=== PATIENT | female | born 1940 | race Caucasian/White ===

== ENCOUNTER → 2016-09-14 | Outpatient (CLI) | payer OTHER, MEDICARE ==
[~2016-09-14] MED LIST: HYDR12.56 PO; LORA-741 PO; SENNTAB23 PO; ZNTT/150 PO
[2016-09-14 12:35] LABS: ALT/SGPT 21 U/L (12-78); BLOOD UREA NITROGEN 13 mg/dl (7-18); BUN/CREATININE RATIO 13.8 (10-20); CALCIUM 9.2 mg/dl (8.5-10.1); CARBON DIOXIDE 28 mmol/L (21-32); CHLORIDE 105 mmol/L (98-107); CHOLESTEROL 215 mg/dl (0-200); CREATININE 0.95 mg/dl (0.60-1.20); GLUCOSE 103 mg/dl (70-99); POTASSIUM 3.8 mmol/L (3.5-5.1); SODIUM 142 mmol/L (136-145); TRIGLYCERIDES 130 mg/dl (0-150); VERY LOW DENSITY LIPOPROT CALC 26 mg/dl
[2016-09-14 12:37] LABS: ALB/GLOB RATIO 1.1 (0.9-2); ALKALINE PHOSPHATASE 84 U/L (45-117); AST/SGOT 15 U/L (15-37); CHOLESTEROL/HDL RATIO 3.3; HDL CHOLESTEROL 65 mg/dl; LDL CHOLESTEROL CALCULATED 124 mg/dl
[2016-09-14 12:49] LABS: ESTIMATED AVERAGE GLUCOSE 114 mg/dl; HA1C FLAG Normal (Normal)
== END | disposition home or self-care (01) ==
LOC: C.LABPVFM 08:35
PROVIDERS: ATTEND Family Medicine
DX: R73.01 Impaired fasting glucose (principal); E78.5 Hyperlipidemia, unspecified; G47.00 Insomnia, unspecified; I10 Essential (primary) hypertension

== ENCOUNTER → 2017-01-18 | Outpatient (CLI) | payer OTHER, MEDICARE ==
[2017-01-18 13:26] LABS: ALB/GLOB RATIO 0.9 (0.9-2); ALT/SGPT 25 U/L (12-78); AST/SGOT 15 U/L (15-37); BLOOD UREA NITROGEN 13 mg/dl (7-18); BUN/CREATININE RATIO 14.6 (10-20); CALCIUM 9.4 mg/dl (8.5-10.1); CARBON DIOXIDE 29 mmol/L (21-32); CHLORIDE 108 mmol/L (98-107); CHOLESTEROL 215 mg/dl (0-200); GLUCOSE 102 mg/dl (70-99); POTASSIUM 4.1 mmol/L (3.5-5.1); SODIUM 141 mmol/L (136-145); TRIGLYCERIDES 147 mg/dl (0-150); VERY LOW DENSITY LIPOPROT CALC 29 mg/dl
[2017-01-18 13:28] LABS: ALKALINE PHOSPHATASE 98 U/L (45-117); CHOLESTEROL/HDL RATIO 3.5; HDL CHOLESTEROL 61 mg/dl; LDL CHOLESTEROL CALCULATED 125 mg/dl
== END | disposition home or self-care (01) ==
LOC: C.LABPVFM 07:57
PROVIDERS: ATTEND Family Medicine
DX: E78.5 Hyperlipidemia, unspecified (principal); K21.9 Gastro-esophageal reflux disease without esophagitis; G47.00 Insomnia, unspecified; I10 Essential (primary) hypertension

== ENCOUNTER → 2017-07-19 | Outpatient (CLI) | payer OTHER ==
[2017-07-19 18:04] LABS: ALBUMIN 3.8 gm/dl (3.4-5.0); ALT/SGPT 27 U/L (12-78); BLOOD UREA NITROGEN 15 mg/dl (7-18); CALCIUM 9.6 mg/dl (8.5-10.1); CARBON DIOXIDE 30 mmol/L (21-32); GLUCOSE 95 mg/dl (70-99); POTASSIUM 3.9 mmol/L (3.5-5.1); SODIUM 137 mmol/L (136-145)
[2017-07-19 18:07] LABS: ALKALINE PHOSPHATASE 99 U/L (45-117); AST/SGOT 16 U/L (15-37); TOTAL PROTEIN 7.7 gm/dl (6.4-8.2)
== END | disposition home or self-care (01) ==
LOC: C.LABPVFM 11:17
PROVIDERS: ATTEND Family Medicine
DX: R73.01 Impaired fasting glucose (principal); I35.8 Other nonrheumatic aortic valve disorders; E78.5 Hyperlipidemia, unspecified; K21.9 Gastro-esophageal reflux disease without esophagitis; G47.00 Insomnia, unspecified; I10 Essential (primary) hypertension

== ENCOUNTER → 2018-02-12 | Outpatient (CLI) | payer OTHER ==
[~2018-02-12] MED LIST changes: +RANI150T85 PO; -ZNTT/150 PO
[2018-02-12 12:57] LABS: ALBUMIN 3.7 gm/dl (3.4-5.0); ALKALINE PHOSPHATASE 93 U/L (45-117); ALT/SGPT 22 U/L (12-78); AST/SGOT 14 U/L (15-37); BLOOD UREA NITROGEN 12 mg/dl (7-18); CARBON DIOXIDE 28 mmol/L (21-32); CHOLESTEROL 203 mg/dl (0-200); CREATININE 0.97 mg/dl (0.60-1.20); GLUCOSE 104 mg/dl (70-99); LDL CHOLESTEROL CALCULATED 114 mg/dl; POTASSIUM 3.6 mmol/L (3.5-5.1); SODIUM 137 mmol/L (136-145); TOTAL PROTEIN 7.8 gm/dl (6.4-8.2)
== END | disposition home or self-care (01) ==
LOC: C.LABPVFM 08:14
PROVIDERS: ATTEND Family Medicine
DX: K21.9 Gastro-esophageal reflux disease without esophagitis (principal); E78.5 Hyperlipidemia, unspecified; L71.9 Rosacea, unspecified; G47.00 Insomnia, unspecified; I10 Essential (primary) hypertension

== ENCOUNTER 2022-05-26 20:24 | Inpatient (IN) ==
[2022-05-26] MEDS ORDERED: ACETAMINOPHEN 500 MG TAB PO STA (20:50)
--- NOTE | 2022-05-26 21:09 | XRay Report ---
SINGLE VIEW CHEST CLINICAL HISTORY: Dyspnea. FINDINGS: An AP, portable, upright chest radiograph is compared to study dated 09/03/2019. The heart is enlarged noting atherosclerotic calcification of the thoracic aorta. The pulmonary vasculature is 9 congested. Chronic interstitial thickening is similar to previous. There is left basilar consolidatio n and a small left pleural effusion. Scarring/atelectasis is seen at the right lung base. No pneumoth orax is seen. The skeletal structures are osteopenic. The bony thorax is grossly intact. IMPRESSION: 1. Left basilar consolidation and small left pleural effusion. Correlate clinically for evidence of p neumonia/aspiration pneumonitis. Radiographic follow-up to resolution is recommended. 2. Cardiomegaly without radiographic evidence of congestive failure. ACT 112: Negative or not required by law. Electronically signed by: Ludin Sanford M.D. 05/26/2022 9:07 PM
[2022-05-26 21:18] LABS: Hemoglobin 11.7 g/dl (12.0-16.0); Mean Corpuscular Hemoglobin 31.1 pg (25.0-34.0); Mean Corpuscular Hgb Conc 34.4 g/dL (32.0-36.0); Mean Corpuscular Volume 90.4 fL (80.0-100.0); Mean Platelet Volume 9.8 fL (9.4-12.3); Platelet Count 182 K/uL (130-400); RDW Coefficient of Variation 14.6 % (11.5-14.5); RDW Standard Deviation 48.3 fL (36.4-46.3); Red Blood Count 3.76 M/uL (3.93-5.22); White Blood Count 12.59 K/ul (4.8-10.8)
[2022-05-26 21:44] LABS: Troponin I High Sensitivity 8.1 pg/ml (0-14)
[2022-05-26 21:46] LABS: Appearance Urine Cloudy (Clear); Bacteria Urine Automated Negative (Negative); Bilirubin Urine Negative (Negative); Blood Urine 1+ (Negative); Color Urine Yellow; Epithelial Cell Urine Auto >30 /lpf (0-5); Glucose Urine UA Negative (Negative); Ketones Urine Trace (Negative); Leukocyte Esterase Urine Trace (Negative); Nitrite Urine Negative (Negative); Protein Urine Trace (Negative); Specific Gravity Urine 1.022 (1.000-1.030); Urobilinogen Urine Negative (Negative)
[2022-05-26 21:47] LABS: Albumin Globulin Ratio 1.2 (0.9-2); Albumin Level 3.7 gm/dl (3.4-5.0); BUN Creatinine Ratio 13.7 (10-20); Bilirubin,Total 0.6 mg/dl (0.2-1.0); Calcium 8.4 mg/dl (8.5-10.1); Creatinine Clr Calc Pharmacy 45.6 ml/min; Est GFR (African American) 64.2 ml/min; Est GFR (Non-African American) 55.4 ml/min; Globulin 3.1 gm/dl (2.5-4.0); Magnesium 2.1 mg/dl (1.7-2.4); Potassium 2.9 mmol/L (3.5-5.1); Total Protein 6.8 gm/dl (6.0-8.3)
[2022-05-26 21:49] LABS: Basophils # (auto) 0.02 K/uL (0-0.2); Basophils % (auto) 0.2 %; Immature Granulocytes # (auto) 0.06 K/uL (0.00-0.02); Immature Granulocytes % (auto) 0.5 %; Lymphocytes # (auto) 0.56 K/uL (1.2-3.4); Lymphocytes % (auto) 4.4 %; Monocytes # (auto) 0.49 K/uL (0.24-0.82); Monocytes % (auto) 3.9 %; Neutrophils # (auto) 11.46 K/uL (1.4-6.5)
--- NOTE | 2022-05-26 21:50 | CT Scan Report ---
CT SCAN OF THE BRAIN WITHOUT IV CONTRAST CLINICAL HISTORY: Change in mental status. COMPARISON STUDY: No priors. TECHNIQUE: Unenhanced axial CT scan of the brain is performed from the vertex to the skull base. A do se lowering technique was utilized adhering to the principles of ALARA. CT DOSE: 537.48 mGy.cm FINDINGS: Brain parenchyma: There is age-related involutional change noting moderate to advanced patchy subcort ical and periventricular microangiopathic disease. There is no hemorrhage, mass effect, or evidence o f acute territorial ischemia by CT criteria. Devlin-white matter differentiation is preserved. No extra -axial fluid collection is seen. Ventricles, sulci, cisterns: Prominent secondary to involutional change. Intracranial vasculature: There is atherosclerotic calcification of the cavernous carotid and vertebr al arteries. Calvarium: Unremarkable. Sinuses and mastoids: There is moderate to advanced mucosal thickening within the ethmoid sinuses. Mi ld mucosal thickening is seen within the frontal and sphenoid sinuses. The mastoid air cells are well pneumatized. Orbits: The bony orbits are grossly intact. IMPRESSION: There is no hemorrhage, mass effect, or evidence of acute territorial ischemia by CT sonia howard. ACT 112: Negative or not required by law. Electronically signed by: Ludin Sanford M.D. 05/26/2022 9:47 PM
--- NOTE | 2022-05-26 22:03 | Emergency Department Note ---
Impression & Plan Acute hypokalemia, RSV infection, Left lower lobe pneumonia, SOB (shortness of breath), Hypoxia ED Provider Note INFORMANT: Patient and family ED PROVIDER(S): Zheng Huffman MD CHIEF COMPLAINT: Shortness of breath PLAN: Disposition: Admitted Condition: Good Outpatient prescription management: none Referral: None MEDICAL DECISION MAKING: Patient presented because of shortness of breath. She was mildly hypoxic but responded well to supplemental oxygen. She had flulike symptoms. Bio fire testing ordered. Chest x-ray was performed and was concerning for left lower lobe infiltrate. Head CT was performed due to confusion and did not reveal any acute abnormalities per radiology. Patient was found to have a mild leukocytosis and mild anemia. She was also hypokalemic. She was given IV potassium. She was also treated with IV Rocephin and IV doxycycline. Consultation was made with the [facility]. Patient was evaluated in the ER and admitted for further management. Triage Nursing notes reviewed and agree them. Vital Signs: reviewed and remarkable for hypoxia Differential diagnosis: Viral syndrome, reactive airway disease, pneumonia, pneumothorax, COPD, CHF, infections, cardiac ischemia, pulmonary embolism, musculoskeletal, gastrointestinal, as well as other pathologies. Diagnostics interpreted by me: ECG: Twelve-lead ECG reveals normal sinus rhythm at 71 bpm. Left ventricular hypertrophy present. Nonspecific ST. No ST elevation or depression. Cardiac Monitoring: Cardiac monitoring ordered by me: The patient was placed on continuous cardiac monitoring and observed. It revealed a normal sinus rhythm at 74 beats per minute without ectopy or evidence of dysrhythmia. Imaging studies: Head CT: A noncontrast CT scan of the head was performed and was negative for tumor, fracture, intracranial hemorrhage, or other acute pathology. Chest x-ray concerning for left lower lobe pneumonia. HPI: The patient is a 82year old female who presents to the Emergency Room with complaints of shortness of breath. This started few days ago and is worsening. The patient also notes the following associated symptoms, some confusion, cough, congestion, weakness, runny nose. The patient has found no relieving factors. Current pain is rated as 0/10. Family noted increased respiratory symptoms and EMS was summoned. She was found to be 89% on room air. She was given a nebulizer treatment and placed on 3 L nasal cannula oxygen. The patient did i mprove. When her O2 saturations were low she was also noted to be mildly confused. That has seemed to improve since oxygen administration. Pt denies LOC, headache, fevers, chills, diaphoresis, visual changes, neck pain, chest pain, nausea, vomiting, abdominal pain, back pain, melena, hematochezia, urinary symptoms, numbness, lymphadenopathy, rash, or other complaints. ROS: See above HPI for pertinent positives & negatives. A total of 10 systems reviewed and were otherwise negative. PAST MEDICAL HISTORY:See Below , hypertension PAST SURGICAL HISTORY:See Below, FAMILY HISTORY:See Below SOCIAL HISTORY:See Below, retired HOME MEDICATIONS:See Below ALLERGIES:See Below VITALS:See Below PHYSICAL EXAMINATION: GENERAL: Awake, alert, mildly dyspneic-appearing, in no distress HENT: Normocephalic, atraumatic. Oropharynx unremarkable. Mild nasal congestion EYES: Normal conjunctiva. Sclera non-icteric. NECK: Inspection normal. Non-tender. Supple. No nuchal rigidity. FROM. No masses. RESPIRATORY: Scattered rhonchi no wheezes. No rales. Increased respiratory effort. CARDIAC: Normal rate. Normal rhythm. No murmurs. No rubs. Extremities warm and well perfused. Pulses equal. No JVD. GI: Soft, non-distended. No tenderness to palpation. No rebound or guarding. No masses. RECTAL: Deferred. MUSCULOSKELETAL: Atraumatic. Chest examination reveals no tenderness. The back is symmetrical on inspection without obvious abnormality. There is no CVA tenderness to palpation. No joint edema. LOWER EXTREMITIES: Calves are equal size bilaterally and non-tender. No edema. No discoloration. NEURO: Normal sensorium. No sensory or motor deficits noted. SKIN: No rash or jaundice noted. Zheng Huffman MD Past Med/Surg History Medical History (Updated 05/27/22 @ 00:32 by Zheng Huffman MD) Change in vision History of actinic keratosis Prolapse of vaginal vault after hysterectomy Rectocele Rhinitis Seborrheic keratosis Surgical History History of hysterectomy History of oophorectomy History of parathyroid surgery Family History Mother Breast cancer Sister Breast cancer Other Family history of breast cancer Denies family history of Ovarian cancer Prostate cancer Myocardial infarction Colorectal cancer Social History Smoking Status: Never smoker Second Hand Exposure: No; Hx Alcohol Use: No Hx Substance Use: No Preferred Language: German Visual Impairment: No Limitations Hearing Ability: Hard of Hearing marital status: Current Living Situation: Spouse current occupational status: retired Feels Safe at Home: Yes Childhood Exposure to Second-Hand Smoke: No caffeine: Yes (coffee) Dental Care, Regularly: No Physical Activity Frequency: Does not Exercise Seatbelt Use: always Sunscreen Use: Yes Allergies Allergies Allergy/AdvReac Type Severity Reaction Status Date / Time Fexofenadine HCl TABS Allergy Unknown Seizure Uncoded 12/04/21 12:58 Home Meds Home Medications Medication Instructions Recorded Confirmed hydrochlorothiazide 12.5 mg capsule 12.5 mg PO QAM 05/26/22 05/26/22 Results & Data (ED) Vital Signs Vital Signs - 24 hr 05/26/22 20:37 05/26/22 20:54 05/26/22 20:30 Temperature 37.6 C H Temperature Source Oral Pulse Rate 73 Pulse Rate [Apical] Pulse Rhythm [Apical] Respiratory Rate 18 Respiratory Effort / Characteristics Non-Labored Spontaneous Short of Breath SOB on Exertion Respiratory Depth Normal Respiratory Pattern Regular Blood Pressure 166/74 H Blood Pressure [Right Arm] Blood Pressure Mean 104 Blood Pressure Mean [Right Arm] Pulse Oximetry 93 91 Oxygen Delivery Method Nasal Cannula Nasal Cannula Room Air Oxygen Flow Rate 3 3 2 Sepsis Recent Fever Within 48 Hours Yes Sepsis New/Unexplained Change in Mental Status No Sepsis Action Taken by Nursing No Action Required 05/26/22 20:30 05/26/22 20:50 05/26/22 23:39 Temperature Temperature Source Pulse Rate 74 Pulse Rate [Apical] 74 62 Pulse Rhythm [Apical] Regular Respiratory Rate 24 24 16 Respiratory Effort / Characteristics Labored Respiratory Depth Normal Respiratory Pattern Blood Pressure Blood Pressure [Right Arm] 178/76 H 127/57 L Blood Pressure Mean Blood Pressure Mean [Right Arm] 110 80 Pulse Oximetry 95 95 97 Oxygen Delivery Method Nasal Cannula Nasal Cannula Nasal Cannula Oxygen Flow Rate 2 2 2 Sepsis Recent Fever Within 48 Hours Sepsis New/Unexplained Change in Mental Status Sepsis Action Taken by Nursing Laboratory Data Result diagrams: 05/26/22 20:50 05/26/22 20:50 Lab Results 05/26/22 05/26/22 05/26/22 Range/Units 20:50 20:50 20:50 WBC 12.59 H (4.8-10.8) K/ul RBC 3.76 L (3.93-5.22) M/uL Hgb 11.7 L (12.0-16.0) g/dl Hct 34.0 L (34.1-44.9) % MCV 90.4 (80.0-100.0) fL MCH 31.1 (25.0-34.0) pg MCHC 34.4 (32.0-36.0) g/dL RDW Std Deviation 48.3 H (36.4-46.3) fL RDW Coeff of Alva 14.6 H (11.5-14.5) % Plt Count 182 (130-400) K/uL MPV 9.8 (9.4-12.3) fL Immature Gran % (Auto) 0.5 % Neut % (Auto) 91.0 % Lymph % (Auto) 4.4 % Gentry % (Auto) 3.9 % Eos % (Auto) 0.0 % Baso % (Auto) 0.2 % Neut # (Auto) 11.46 H (1.4-6.5) K/uL Lymph # (Auto) 0.56 L (1.2-3.4) K/uL Gentry # (Auto) 0.49 (0.24-0.82) K/uL Eos # (Auto) 0.00 (0-0.50) K/uL Baso # (Auto) 0.02 (0-0.2) K/uL Immature Gran # (Auto) 0.06 H (0.00-0.02) K/uL Sodium 131 L (136-145) mmol/L Potassium 2.9 L (3.5-5.1) mmol/L Chloride 98 (98-107) mmol/L Carbon Dioxide 23 (21-32) mmol/L Anion Gap 10 (3-11) BUN 13 (6-23) mg/dl Creatinine 0.95 (0.6-1.2) mg/dl Est Cr Clr Drug Dosing 45.6 ml/min Est GFR ( Amer) 64.2 ml/min Est GFR (Non-Af Amer) 55.4 ml/min BUN/Creatinine Ratio 13.7 (10-20) Glucose 157 H (70-99(Fasting)) mg/dl Calcium 8.4 L (8.5-10.1) mg/dl Magnesium 2.1 (1.7-2.4) mg/dl Total Bilirubin 0.6 (0.2-1.0) mg/dl AST 18 (13-39) U/L ALT 18 (7-52) U/L Alkaline Phosphatase 72 (34-104) U/L Troponin I High Sens 8.1 (0-14) pg/ml B-Natriuretic Peptide 119 H (0-100) pg/ml Total Protein 6.8 (6.0-8.3) gm/dl Albumin 3.7 (3.4-5.0) gm/dl Globulin 3.1 (2.5-4.0) gm/dl Albumin/Globulin Ratio 1.2 (0.9-2) Urine Color Urine Appearance (Clear) Urine pH (4.5-7.5) Ur Specific Sargent (1.000-1.030) Urine Protein (Negative) Urine Glucose (UA) (Negative) Urine Ketones (Negative) Urine Blood (Negative) Urine Nitrite (Negative) Urine Bilirubin (Negative) Urine Urobilinogen (Negative) Ur Leukocyte Esterase (Negative) Urine WBC (Auto) (0-5) /hpf Urine RBC (Auto) (0-4) /hpf U Hyaline Cast (Auto) (0-5) /lpf U Epithel Cells (Auto) (0-5) /lpf Urine Bacteria (Auto) (Negative) Ur Renal Epithelial Cell Urine Mucus (None Prsent) Adenovirus (PCR) (NotDetected) B. pertussis DNA (PCR) (NotDetected) B.parapertussis DNA PCR (NotDetected) C. pneumoniae DNA (PCR) (NotDetected) Coronavirus OC43 (PCR) (NotDetected) Coronavirus HKU1 (PCR) (NotDetected) Coronavirus 229E (PCR) (NotDetected) SARS-CoV-2 (PCR) (NotDetected) Coronavirus NL63 (PCR) (NotDetected) Human Metapneumovir PCR (NotDetected) Influenza Type A (PCR) (NotDetected) Influenza Type B (PCR) (NotDetected) M. pneumoniae (PCR) (NotDetected) Parainfluenza 1 (PCR) (NotDetected) Parainfluenza 2 (PCR) (NotDetected) Parainfluenza 3 (PCR) (NotDetected) Parainfluenza 4 (PCR) (NotDetected) RSV (PCR) (NotDetected) Entero/Rhino (PCR) (NotDetected) 05/26/22 05/26/22 Range/Units 20:55 21:20 WBC (4.8-10.8) K/ul RBC (3.93-5.22) M/uL Hgb (12.0-16.0) g/dl Hct (34.1-44.9) % MCV (80.0-100.0) fL MCH (25.0-34.0) pg MCHC (32.0-36.0) g/dL RDW Std Deviation (36.4-46.3) fL RDW Coeff of Alva (11.5-14.5) % Plt Count (130-400) K/uL MPV (9.4-12.3) fL Immature Gran % (Auto) % Neut % (Auto) % Lymph % (Auto) % Gentry % (Auto) % Eos % (Auto) % Baso % (Auto) % Neut # (Auto) (1.4-6.5) K/uL Lymph # (Auto) (1.2-3.4) K/uL Gentry # (Auto) (0.24-0.82) K/uL Eos # (Auto) (0-0.50) K/uL Baso # (Auto) (0-0.2) K/uL Immature Gran # (Auto) (0.00-0.02) K/uL Sodium (136-145) mmol/L Potassium (3.5-5.1) mmol/L Chloride (98-107) mmol/L Carbon Dioxide (21-32) mmol/L Anion Gap (3-11) BUN (6-23) mg/dl Creatinine (0.6-1.2) mg/dl Est Cr Clr Drug Dosing ml/min Est GFR ( Amer) ml/min Est GFR (Non-Af Amer) ml/min BUN/Creatinine Ratio (10-20) Glucose (70-99(Fasting)) mg/dl Calcium (8.5-10.1) mg/dl Magnesium (1.7-2.4) mg/dl Total Bilirubin (0.2-1.0) mg/dl AST (13-39) U/L ALT (7-52) U/L Alkaline Phosphatase (34-104) U/L Troponin I High Sens (0-14) pg/ml B-Natriuretic Peptide (0-100) pg/ml Total Protein (6.0-8.3) gm/dl Albumin (3.4-5.0) gm/dl Globulin (2.5-4.0) gm/dl Albumin/Globulin Ratio (0.9-2) Urine Color Yellow Urine Appearance Cloudy A (Clear) Urine pH 6.0 (4.5-7.5) Ur Specific Sargent 1.022 (1.000-1.030) Urine Protein Trace H (Negative) Urine Glucose (UA) Negative (Negative) Urine Ketones Trace H (Negative) Urine Blood 1+ H (Negative) Urine Nitrite Negative (Negative) Urine Bilirubin Negative (Negative) Urine Urobilinogen Negative (Negative) Ur Leukocyte Esterase Trace H (Negative) Urine WBC (Auto) 5-10 H (0-5) /hpf Urine RBC (Auto) 5-10 H (0-4) /hpf U Hyaline Cast (Auto) 10-30 H (0-5) /lpf U Epithel Cells (Auto) >30 H (0-5) /lpf Urine Bacteria (Auto) Negative (Negative) Ur Renal Epithelial Cell Not Reportable Urine Mucus Present A (None Prsent) Adenovirus (PCR) Not Detected (NotDetected) B. pertussis DNA (PCR) Not Detected (NotDetected) B.parapertussis DNA PCR Not Detected (NotDetected) C. pneumoniae DNA (PCR) Not Detected (NotDetected) Coronavirus OC43 (PCR) Not Detected (NotDetected) Coronavirus HKU1 (PCR) Not Detected (NotDetected) Coronavirus 229E (PCR) Not Detected (NotDetected) SARS-CoV-2 (PCR) Not Detected (NotDetected) Coronavirus NL63 (PCR) Not Detected (NotDetected) Human Metapneumovir PCR Not Detected (NotDetected) Influenza Type A (PCR) Not Detected (NotDetected) Influenza Type B (PCR) Not Detected (NotDetected) M. pneumoniae (PCR) Not Detected (NotDetected) Parainfluenza 1 (PCR) Not Detected (NotDetected) Parainfluenza 2 (PCR) Not Detected (NotDetected) Parainfluenza 3 (PCR) Not Detected (NotDetected) Parainfluenza 4 (PCR) Not Detected (NotDetected) RSV (PCR) DETECTED A* (NotDetected) Entero/Rhino (PCR) Not Detected (NotDetected) Administered Medications Discontinued Medications Acetaminophen (Acetaminophen 500 Mg Tab) 1,000 mg PO NOW STA Stop: 05/26/22 20:51 Last Admin: 05/26/22 21:12 Dose: 1,000 mg Documented By: PHIL Ceftriaxone Sodium (Rocephin) 2,000 mg in 70 mls @ 140 mls/hr IV NOW STA Stop: 05/26/22 22:33 Last Infusion: 05/26/22 23:08 Dose: 0 mls/hr Documented By: Admin: 05/26/22 22:41 Dose: 140 mls/hr Documented By: PHIL Doxycycline Hyclate 100 mg/ (Dextrose) 110 mls @ 50 mls/hr IV NOW STA Stop: 05/27/22 00:15 Last Admin: 05/26/22 23:08 Dose: 50 mls/hr Documented By: PHIL Potassium Chloride (K [place] / Wtr) 10 meq in 100 mls @ 100 mls/hr IV Q1H KATIE; Protocol Stop: 05/27/22 00:14 Last Admin: 05/26/22 23:38 Dose: 100 mls/hr Documented By: Infusion: 05/26/22 23:38 Dose: 0 mls/hr Documented By: Admin: 05/26/22 22:42 Dose: 100 mls/hr Documented By: PHIL Imaging Data Radiologist's Impression: Chest X-Ray 05/26/22 20:50 SINGLE VIEW CHEST CLINICAL HISTORY: Dyspnea. FINDINGS: An AP, portable, upright chest radiograph is compared to study dated 09/03/2019. The heart is enlarged noting atherosclerotic calcification of the thoracic aorta. The pulmonary vasculature is 9 congested. Chronic interstitial thickening is similar to previous. There is left basilar consolidation and a small left pleural effusion. Scarring/atelectasis is seen at the right lung base. No pneumothorax is seen. The skeletal structures are osteopenic. The bony thorax is grossly intact. IMPRESSION: 1. Left basilar consolidation and small left pleural effusion. Correlate clinically for evidence of pneumonia/aspiration pneumonitis. Radiographic follow-up to resolution is recommended. 2. Cardiomegaly without radiographic evidence of congestive failure. ACT 112: Negative or not required by law. Electronically signed by: Ludin Sanford M.D. 05/26/2022 9:[address] 05/26/22 20:50 CT SCAN OF THE BRAIN WITHOUT IV CONTRAST CLINICAL HISTORY: Change in mental status. COMPARISON STUDY: No priors. TECHNIQUE: Unenhanced axial CT scan of the brain is performed from the vertex to the skull base. A dose lowering technique was utilized adhering to the principles of ALARA. CT DOSE: 537.48 mGy.cm FINDINGS: Brain parenchyma: There is age-related involutional change noting moderate to advanced patchy subcortical and periventricular microangiopathic disease. There is no hemorrhage, mass effect, or evidence of acute territorial ischemia by CT criteria. Devlin-white matter differentiation is preserved. No extra-axial fluid collection is seen. Ventricles, sulci, cisterns: Prominent secondary to involutional change. Intracranial vasculature: There is atherosclerotic calcification of the cavernous carotid and vertebral arteries. Calvarium: Unremarkable. Sinuses and mastoids: There is moderate to advanced mucosal thickening within the ethmoid sinuses. Mild mucosal thickening is seen within the frontal and sphenoid sinuses. The mastoid air cells are well pneumatized. Orbits: The bony orbits are grossly intact. IMPRESSION: There is no hemorrhage, mass effect, or evidence of acute territorial ischemia by CT criteria. ACT 112: Negative or not required by law. Electronically signed by: Ludin Sanford M.D. 05/26/2022 9:47 PM Discharge Plan Visit Data Chief Complaint: Shortness of Breath/Dyspnea Stated Complaint: ILLNESS/SHORT OF BREATH ED Provider: Zheng Huffman Discharge Problem: Acute hypokalemia, RSV infection, Left lower lobe pneumonia, SOB (shortness of breath), Hypoxia Forms Stand Alone Forms: [facility] [employer] Prescriptions Prescriptions: No Action hydrochlorothiazide 12.5 mg capsule 12.5 mg PO QAM Referrals Referrals: Mai Caceres MD [Primary Care Provider] -
[2022-05-26] MEDS ORDERED: DOXYCYCLINE HYCLATE 100 MG in DEXTROSE 5% 100 ML IV STA (22:04)
[2022-05-26] MEDS ORDERED: cefTRIAXone SODIUM 2,000 MG/70 ML BAG IV STA (22:04)
[2022-05-26 22:28] LABS: Mucus Urine Present (None Prsent)
[2022-05-26] MEDS: POTASSIUM CHLORIDE / WTR 10 MEQ/100 ML PLCT IV SCH ×2 (22:42→23:38)
[2022-05-26 22:50] LABS: Adenovirus PCR Not Detected (NotDetected); Bordetella parapertussis PCR Not Detected (NotDetected); Bordetella pertussis PCR Not Detected (NotDetected); Chlamydia pneumoniae PCR Not Detected (NotDetected); Coronavirus 229E PCR Not Detected (NotDetected); Coronavirus CoV-2 (COVID19)PCR Not Detected (NotDetected); Coronavirus HKU1 PCR Not Detected (NotDetected); Coronavirus NL63 PCR Not Detected (NotDetected); Coronavirus OC43PCR Not Detected (NotDetected); Human Metapneumovirus PCR Not Detected (NotDetected); Influenza A PCR Not Detected (NotDetected); Influenza B PCR Not Detected (NotDetected); Mycoplasma pneumoniae PCR Not Detected (NotDetected); Parainfluenza Virus 1 PCR Not Detected (NotDetected); Parainfluenza Virus 2 PCR Not Detected (NotDetected); Parainfluenza Virus 3 PCR Not Detected (NotDetected); Parainfluenza Virus 4 PCR Not Detected (NotDetected); Rhinovirus/Enterovirus PCR Not Detected (NotDetected)
[2022-05-26 22:52] LABS: Respiratory Syncytial VirusPCR DETECTED (NotDetected)
--- NOTE | 2022-05-26 23:27 | History & Physical Report ---
Date of Service May 26, 2022 Assessment & Plan (1) Acute respiratory failure with hypoxia: Plan: Acute respiratory failure with hypoxia/RSV infection/secondary bacterial left lower lobe pneumonia- Methylprednisolone 40 mg IV every 8 hours Ceftriaxone 2 g IV daily Azithromycin 5 mg IV daily Duonebs every 4 hours while awake and every 2 hours when necessary. Guaifenesin extended release 12 mg p.o. twice daily Zofran 4 mg IV every 6 hours as needed Nasal cannula oxygen, titrate to keep pulse ox 94-95% (2) Left lower lobe pneumonia: (3) RSV infection: (4) Acute hypokalemia: Plan: Potassium 2.9 upon admission Given potassium chloride 10 mEq riders IV x2 from the ED Placed on NSS + KCl 20 mEq at 80 mils per hour x1 L. Follow laboratories in a.m. (5) Hypertension: Plan: Hold HCTZ History of Present Illness Chief Complaint: The patient presents to the emergency department with shortness of breath and dyspnea on exertion over the past few days. Primary Care Provider: Mai Caceres MD The patient is an 82-year-old female with a past medical history including GERD, anxiety, midline cystocele, hyperlipidemia, hypertension, insomnia, osteoporosis, palpitations, rosacea and cerumen impaction. She presented to the emergency department with shortness of breath and generalized weakness. Work-up in the emergency department included a chest x- ray which showed a left lower lobe pneumonia and pleural effusion. Viral studies showed a RSV positive test. From the emergency department she received ceftriaxone IV, doxycycline IV and potassium chloride 10 mEq IV x2. Significant abnormal laboratories: WBC 12.59, sodium 131, potassium 2.9, glucose 157 and RSV positive. Allergies Allergy/AdvReac Type Severity Reaction Status Date / Time Fexofenadine HCl TABS Allergy Unknown Seizure Uncoded 12/04/21 12:58 Home Medications Medication Instructions Recorded Confirmed Type hydrochlorothiazide 12.5 mg capsule 12.5 mg PO QAM 05/26/22 05/26/22 History Past Med/Surg History Medical History (Updated 05/27/22 @ 02:50 by Fausto Gamble MD) Change in vision History of actinic keratosis Prolapse of vaginal vault after hysterectomy Rectocele Rhinitis Seborrheic keratosis Surgical History History of hysterectomy History of oophorectomy History of parathyroid surgery Family History Mother Breast cancer Sister Breast cancer Other Family history of breast cancer Denies family history of Ovarian cancer Prostate cancer Myocardial infarction Colorectal cancer Social History Smoking Status: Never smoker Second Hand Exposure: No; Hx Alcohol Use: No Hx Substance Use: No Preferred Language: Palauan Visual Impairment: No Limitations Hearing Ability: Hard of Hearing marital status: Current Living Situation: Spouse current occupational status: retired Feels Safe at Home: Yes Childhood Exposure to Second-Hand Smoke: No caffeine: Yes (coffee) Dental Care, Regularly: No Physical Activity Frequency: Does not Exercise Seatbelt Use: always Sunscreen Use: Yes Review of Systems Review of Systems: The patient is very fatigued, but denies chest pain, palpitations, lower extremity swelling, sore throat, fevers, chills, sweats, nausea, vomiting, diarrhea , constipation, abdominal pain, pelvic pain, blood in urine or stool, dysuria, urinary frequency or urgency, loss of consciousness, rash, abnormal bruising or bleeding, focal weakness, numbness or tingling in arms or legs, generalized arthralgias or myalgias, back or neck pain, or night sweats. The review of systems is otherwise negative other than for that already noted above, and at least 10 systems have been reviewed. Physical Exam Physical Exam: The patient is awake, mildly lethargic, well developed and well nourished, normocephalic and atraumatic, lying in bed and in no acute distress. HEENT--PERRL, EOMI, mucous membranes and oropharynx dry. Neck--supple. No JVD. No bruits. Thyroid normal, trachea midline, no adenopathy. Heart--normal S1 and S2. No murmurs, rubs or gallops. Lungs--coarse breath sounds on left base. No respiratory distress, no accessory muscle use. Abdomen--normal bowel sounds and soft. Nontender. Nondistended, no hernias or masses, no organomegaly. Extremities--no cyanosis or clubbing. No edema. Dermatologic--normal skin turgor, normal color, no abnormal lymph nodes, no rash. Neurologic--cranial nerves II through XII grossly intact. Rheumatologic--normal range of motion. Psychiatric--lethargic Results & Data Results & Data ([facility]) Vital Signs (Past 12 Hours) Vital Signs Temp Pulse Pulse Resp BP BP Pulse Ox 05/26/22 20:50 74 24 95 05/26/22 20:30 74 24 178/76 H 95 05/26/22 20:30 91 05/26/22 20:54 05/26/22 20:37 37.6 C H 73 18 166/74 H 93 O2 Del Method O2 Flow Rate 05/26/22 20:50 Nasal Cannula 2 05/26/22 20:30 Nasal Cannula 2 05/26/22 20:30 Room Air 2 05/26/22 20:54 Nasal Cannula 3 05/26/22 20:37 Nasal Cannula 3 Laboratory Results Laboratory Results WBC 12.59 K/ul (4.8-10.8) H 05/26/22 20:50 RBC 3.76 M/uL (3.93-5.22) L 05/26/22 20:50 Hgb 11.7 g/dl (12.0-16.0) L 05/26/22 20:50 Hct 34.0 % (34.1-44.9) L 05/26/22 20:50 MCV 90.4 fL (80.0-100.0) 05/26/22 20:50 MCH 31.1 pg (25.0-34.0) 05/26/22 20:50 MCHC 34.4 g/dL (32.0-36.0) 05/26/22 20:50 RDW Std Deviation 48.3 fL (36.4-46.3) H 05/26/22 20:50 RDW Coeff of Alva 14.6 % (11.5-14.5) H 05/26/22 20:50 Plt Count 182 K/uL (130-400) 05/26/22 20:50 MPV 9.8 fL (9.4-12.3) 05/26/22 20:50 Immature Gran % (Auto) 0.5 % 05/26/22 20:50 Neut % (Auto) 91.0 % 05/26/22 20:50 Lymph % (Auto) 4.4 % 05/26/22 20:50 Polk % (Auto) 3.9 % 05/26/22 20:50 Eos % (Auto) 0.0 % 05/26/22 20:50 Baso % (Auto) 0.2 % 05/26/22 20:50 Neut # (Auto) 11.46 K/uL (1.4-6.5) H 05/26/22 20:50 Lymph # (Auto) 0.56 K/uL (1.2-3.4) L 05/26/22 20:50 Polk # (Auto) 0.49 K/uL (0.24-0.82) 05/26/22 20:50 Eos # (Auto) 0.00 K/uL (0-0.50) 05/26/22 20:50 Baso # (Auto) 0.02 K/uL (0-0.2) 05/26/22 20:50 Immature Gran # (Auto) 0.06 K/uL (0.00-0.02) H 05/26/22 20:50 Sodium 131 mmol/L (136-145) L 05/26/22 20:50 Potassium 2.9 mmol/L (3.5-5.1) L 05/26/22 20:50 Chloride 98 mmol/L (98-107) 05/26/22 20:50 Carbon Dioxide 23 mmol/L (21-32) 05/26/22 20:50 Anion Gap 10 (3-11) 05/26/22 20:50 BUN 13 mg/dl (6-23) 05/26/22 20:50 Creatinine 0.95 mg/dl (0.6-1.2) 05/26/22 20:50 Est Cr Clr Drug Dosing 45.6 ml/min 05/26/22 20:50 Est GFR ( Amer) 64.2 ml/min 05/26/22 20:50 Est GFR (Non-Af Amer) 55.4 ml/min 05/26/22 20:50 BUN/Creatinine Ratio 13.7 (10-20) 05/26/22 20:50 Glucose 157 mg/dl (70-99(Fasting)) H 05/26/22 20:50 Calcium 8.4 mg/dl (8.5-10.1) L 05/26/22 20:50 Magnesium 2.1 mg/dl (1.7-2.4) 05/26/22 20:50 Total Bilirubin 0.6 mg/dl (0.2-1.0) 05/26/22 20:50 AST 18 U/L (13-39) 05/26/22 20:50 ALT 18 U/L (7-52) 05/26/22 20:50 Alkaline Phosphatase 72 U/L (34-104) 05/26/22 20:50 Troponin I High Sens 8.1 pg/ml (0-14) 05/26/22 20:50 B-Natriuretic Peptide 119 pg/ml (0-100) H 05/26/22 20:50 Total Protein 6.8 gm/dl (6.0-8.3) 05/26/22 20:50 Albumin 3.7 gm/dl (3.4-5.0) 05/26/22 20:50 Globulin 3.1 gm/dl (2.5-4.0) 05/26/22 20:50 Albumin/Globulin Ratio 1.2 (0.9-2) 05/26/22 20:50 Urine Color Yellow 05/26/22 21:20 Urine Appearance Cloudy (Clear) A 05/26/22 21:20 Urine pH 6.0 (4.5-7.5) 05/26/22 21:20 Ur Specific Sadler 1.022 (1.000-1.030) 05/26/22 21:20 Urine Protein Trace (Negative) H 05/26/22 21:20 Urine Glucose (UA) Negative (Negative) 05/26/22 21:20 Urine Ketones Trace (Negative) H 05/26/22 21:20 Urine Blood 1+ (Negative) H 05/26/22 21:20 Urine Nitrite Negative (Negative) 05/26/22 21:20 Urine Bilirubin Negative (Negative) 05/26/22 21:20 Urine Urobilinogen Negative (Negative) 05/26/22 21:20 Ur Leukocyte Esterase Trace (Negative) H 05/26/22 21:20 Urine WBC (Auto) 5-10 /hpf (0-5) H 05/26/22 21:20 Urine RBC (Auto) 5-10 /hpf (0-4) H 05/26/22 21:20 U Hyaline Cast (Auto) 10-30 /lpf (0-5) H 05/26/22 21:20 U Epithel Cells (Auto) >30 /lpf (0-5) H 05/26/22 21:20 Urine Bacteria (Auto) Negative (Negative) 05/26/22 21:20 Ur Renal Epithelial Cell Not Reportable 05/26/22 21:20 Urine Mucus Present (None Prsent) A 05/26/22 21:20 Adenovirus (PCR) Not Detected (NotDetected) 05/26/22 20:55 B. pertussis DNA (PCR) Not Detected (NotDetected) 05/26/22 20:55 B.parapertussis DNA PCR Not Detected (NotDetected) 05/26/22 20:55 C. pneumoniae DNA (PCR) Not Detected (NotDetected) 05/26/22 20:55 Coronavirus OC43 (PCR) Not Detected (NotDetected) 05/26/22 20:55 Coronavirus HKU1 (PCR) Not Detected (NotDetected) 05/26/22 20:55 Coronavirus 229E (PCR) Not Detected (NotDetected) 05/26/22 20:55 SARS-CoV-2 (PCR) Not Detected (NotDetected) 05/26/22 20:55 Coronavirus NL63 (PCR) Not Detected (NotDetected) 05/26/22 20:55 Human Metapneumovir PCR Not Detected (NotDetected) 05/26/22 20:55 Influenza Type A (PCR) Not Detected (NotDetected) 05/26/22 20:55 Influenza Type B (PCR) Not Detected (NotDetected) 05/26/22 20:55 M. pneumoniae (PCR) Not Detected (NotDetected) 05/26/22 20:55 Parainfluenza 1 (PCR) Not Detected (NotDetected) 05/26/22 20:55 Parainfluenza 2 (PCR) Not Detected (NotDetected) 05/26/22 20:55 Parainfluenza 3 (PCR) Not Detected (NotDetected) 05/26/22 20:55 Parainfluenza 4 (PCR) Not Detected (NotDetected) 05/26/22 20:55 RSV (PCR) DETECTED (NotDetected) A* 05/26/22 20:55 Entero/Rhino (PCR) Not Detected (NotDetected) 05/26/22 20:55 Impressions Chest X-Ray 05/26/22 20:50 SINGLE VIEW CHEST CLINICAL HISTORY: Dyspnea. FINDINGS: An AP, portable, upright chest radiograph is compared to study dated 09/03/2019. The heart is enlarged noting atherosclerotic calcification of the thoracic aorta. The pulmonary vasculature is 9 congested. Chronic interstitial thickening is similar to previous. There is left basilar consolidation and a small left pleural effusion. Scarring/atelectasis is seen at the right lung base. No pneumothorax is seen. The skeletal structures are osteopenic. The bony thorax is grossly intact. IMPRESSION: 1. Left basilar consolidation and small left pleural effusion. Correlate clinically for evidence of pneumonia/aspiration pneumonitis. Radiographic follow-up to resolution is recommended. 2. Cardiomegaly without radiographic evidence of congestive failure. ACT 112: Negative or not required by law. Electronically signed by: Ludin Sanford M.D. 05/26/2022 9:[address] 05/26/22 20:50 CT SCAN OF THE BRAIN WITHOUT IV CONTRAST CLINICAL HISTORY: Change in mental status. COMPARISON STUDY: No priors. TECHNIQUE: Unenhanced axial CT scan of the brain is performed from the vertex to the skull base. A dose lowering technique was utilized adhering to the principles of ALARA. CT DOSE: 537.48 mGy.cm FINDINGS: Brain parenchyma: There is age-related involutional change noting moderate to advanced patchy subcortical and periventricular microangiopathic disease. There is no hemorrhage, mass effect, or evidence of acute territorial ischemia by CT criteria. Devlin-white matter differentiation is preserved. No extra-axial fluid collection is seen. Ventricles, sulci, cisterns: Prominent secondary to involutional change. Intracranial vasculature: There is atherosclerotic calcification of the cavernous carotid and vertebral arteries. Calvarium: Unremarkable. Sinuses and mastoids: There is moderate to advanced mucosal thickening within the ethmoid sinuses. Mild mucosal thickening is seen within the frontal and sphenoid sinuses. The mastoid air cells are well pneumatized. Orbits: The bony orbits are grossly intact. IMPRESSION: There is no hemorrhage, mass effect, or evidence of acute territorial ischemia by CT criteria. ACT 112: Negative or not required by law. Electronically signed by: Ludin Sanford M.D. 05/26/2022 9:47 PM Code Status & VTE Plan Code Status Full code VTE Prophylaxis Plan VTE Prophylaxis will be ordered: Yes
[2022-05-27] MEDS ORDERED: ONDANSETRON INJ 2 MG/ML 2 ML VIAL IV PRN (01:45)
[2022-05-27] MEDS ORDERED: ACETAMINOPHEN 325 MG TAB PO PRN (01:45)
--- NOTE | 2022-05-27 02:53 | Billing Data ---
Date of Service May 27, 2022 Coding Level of Care Code 25497 Initial Inpt Care Lvl 3
[2022-05-27] MEDS ORDERED: methylPREDNISolone 40 MG in SYRINGE 0 ML IV SCH (03:00)
[2022-05-27] MEDS ORDERED: INFLUENZA VACCINE HIGH DOSE PF 65+ 0.7 ML SYR IM ONE (05:21)
[2022-05-27 05:49] LABS: Basophils # (auto) 0.01 K/uL (0-0.2); Basophils % (auto) 0.1 %; Eosinophils # (auto) 0.11 K/uL (0-0.50); Eosinophils % (auto) 1.2 %; Hematocrit (blood only) 33.4 % (34.1-44.9); Hemoglobin 11.5 g/dl (12.0-16.0); Immature Granulocytes # (auto) 0.06 K/uL (0.00-0.02); Immature Granulocytes % (auto) 0.6 %; Lymphocytes # (auto) 0.79 K/uL (1.2-3.4); Lymphocytes % (auto) 8.3 %; Mean Corpuscular Hemoglobin 30.8 pg (25.0-34.0); Mean Corpuscular Hgb Conc 34.4 g/dL (32.0-36.0); Mean Corpuscular Volume 89.5 fL (80.0-100.0); Monocytes # (auto) 0.43 K/uL (0.24-0.82); Monocytes % (auto) 4.5 %; Neutrophils # (auto) 8.07 K/uL (1.4-6.5); Neutrophils % (auto) 85.3 %; Platelet Count 171 K/uL (130-400); RDW Coefficient of Variation 14.7 % (11.5-14.5); Red Blood Count 3.73 M/uL (3.93-5.22); White Blood Count 9.47 K/ul (4.8-10.8)
[2022-05-27 06:07] LABS: Albumin Globulin Ratio 1.1 (0.9-2); Albumin Level 3.4 gm/dl (3.4-5.0); BUN Creatinine Ratio 13.3 (10-20); Bilirubin,Total 0.5 mg/dl (0.2-1.0); Calcium 8.2 mg/dl (8.5-10.1); Creatinine Clr Calc Pharmacy 52.2 ml/min; Est GFR (African American) 75.6 ml/min; Est GFR (Non-African American) 65.2 ml/min; Magnesium 2.1 mg/dl (1.7-2.4); Potassium 3.1 mmol/L (3.5-5.1); Total Protein 6.4 gm/dl (6.0-8.3)
--- NOTE | 2022-05-27 07:08 | Electrocardiogram Report ---
Test Reason : Blood Pressure : / mmHG Vent. Rate : 074 BPM Atrial Rate : 074 BPM P-R Int : 164 ms QRS Dur : 090 ms QT Int : 418 ms P-R-T Axes : 061 -21 049 degrees QTc Int : 463 ms Normal sinus rhythm Moderate voltage criteria for LVH, may be normal variant Nonspecific ST abnormality Abnormal ECG When compared with ECG of 03-SEP-2019 06:15, Vent. rate has increased BY 24 BPM Confirmed by Lj Avalos ([id number]) on 05/27/2022 7:08:16 AM Referred By: REFERRED SELF Confirmed By:Kye Avalos
[2022-05-27] MEDS: ALBUT/IPRATROP 3MG/0.5MG NEB 3 ML VIAL NEB SCH ×4 (07:14→18:08)
[2022-05-27] MEDS ORDERED: POTASSIUM CHLORIDE CRTAB 20 MEQ TABCR PO STA (08:42)
[2022-05-27] MEDS: cefTRIAXone SODIUM 2,000 MG in DEXTROSE 5% 50 ML IV SCH (08:52)
[2022-05-27] MEDS: AZITHROMYCIN 500 MG in DEXTROSE 5% 250 ML IV SCH (08:52)
[2022-05-27] MEDS: ENOXAPARIN INJ 40 MG/0.4 ML SYR SQ SCH (08:53)
[2022-05-27] MEDS: guaiFENesin 600 MG TABCR PO SCH ×2 (08:53→21:17)
--- NOTE | 2022-05-27 11:53 | Hospitalist Progress Note ---
Date of Service May 27, 2022 Assessment & Plan (1) Acute respiratory failure with hypoxia: Plan: Acute respiratory failure with hypoxia/RSV infection/secondary bacterial left lower lobe pneumonia- Guaifenesin extended release 12 mg p.o. twice daily Zofran 4 mg IV every 6 hours as needed Nasal cannula oxygen, titrate to keep pulse ox 94-95% (2) RSV infection: Plan: RSV pneumonia No history of reactive airway disease / COPD / asthma Solu-medrol 40mg IV given earlier, will switch to prednisone 40mg PO daily for another 2 days Continue duonebs QID (3) Left lower lobe pneumonia: Plan: Ceftriaxone 2 g IV daily for 7 days Azithromycin 500 mg IV daily for 3 days (4) Acute hypokalemia: Plan: Suspect secondary to HCTZ Potassium 2.9 upon admission Given potassium chloride 10 mEq riders IV x2 from the ED Additional 40 meq KCl PO (5) Hypertension: Plan: Hold HCTZ Plan VTE Prophylaxis - Lovenox 40mg SQ daily Diet - heart health Disposition - continued admission on med/surg pending improvement in oxygenation. PT/OT Admission and Anticipated Discharge Date Admission Date: May 26, 2022 Subjective No significant difference with duonebs. Reports improvement since admission. Still feels very fatigued. Wet cough. No nasal congestion or sinus pain. No fever or chills. Review of Systems Review of Systems: All systems reviewed & are unremarkable except as noted in Subjective Physical Exam Constitutional: WD/WN, vitals as above Respiratory: + labored breathing, + uses accessory muscles, able to speak in complete sentences, + prolonged expiratory phase and + pursed lip breathing Auscultation: + diminished lung sounds (left base), + crackles (left base) and + wheezes (expiratory) Cardiovascular: RRR, no murmur, no edema Gastrointestinal (Abdomen): normal bowel sounds, soft, nontender, no hepatosplenomegaly Psychiatric: A+Ox3, euthymic affect Results & Data Results & Data ([facility]) Vital Signs (Past 12 Hours) Vital Signs Temp Pulse Resp BP Pulse Ox O2 Del Method O2 Flow Rate 05/27/22 07:45 Nasal Cannula 2 05/27/22 11:05 67 20 97 Nasal Cannula 2 05/27/22 08:26 37 C 78 19 175/81 H 94 Nasal Cannula 2 05/27/22 07:14 76 18 95 Nasal Cannula 2 05/27/22 01:00 Nasal Cannula 2 05/27/22 01:00 37.0 C 72 18 151/84 H 97 Nasal Cannula 2 05/27/22 02:39 36.8 C 64 20 144/83 H 98 Nasal Cannula 2 PG Care Time/CCT Total # of Minutes Spent Total Time Spent with Patient: Total time spent is greater than 50% in coordination of care (as documented) at patient's floor/unit and/or counseling patient: Coding Level of Care Code 93514 Subseq Hosp Care Lvl 2 Diagnoses Acute respiratory failure with hypoxia J96.01 RSV infection B33.8 Left lower lobe pneumonia J18.9 Acute hypokalemia E87.6 Hypertension I10
[2022-05-27] MEDS: POTASSIUM CHLORIDE / WTR 10 MEQ/100 ML PLCT IV SCH (23:31)
[2022-05-28] MEDS: POTASSIUM CHLORIDE / WTR 10 MEQ/100 ML PLCT IV SCH (00:29)
[2022-05-28 06:40] LABS: Basophils # (auto) 0.02 K/uL (0-0.2); Basophils % (auto) 0.2 %; Eosinophils # (auto) 0.04 K/uL (0-0.50); Eosinophils % (auto) 0.4 %; Hematocrit (blood only) 32.5 % (34.1-44.9); Hemoglobin 11.3 g/dl (12.0-16.0); Immature Granulocytes # (auto) 0.06 K/uL (0.00-0.02); Immature Granulocytes % (auto) 0.6 %; Lymphocytes # (auto) 1.62 K/uL (1.2-3.4); Lymphocytes % (auto) 15.1 %; Mean Corpuscular Hemoglobin 31.1 pg (25.0-34.0); Mean Corpuscular Hgb Conc 34.8 g/dL (32.0-36.0); Mean Corpuscular Volume 89.5 fL (80.0-100.0); Mean Platelet Volume 9.8 fL (9.4-12.3); Monocytes # (auto) 0.53 K/uL (0.24-0.82); Monocytes % (auto) 4.9 %; Neutrophils # (auto) 8.47 K/uL (1.4-6.5); Neutrophils % (auto) 78.8 %; Platelet Count 186 K/uL (130-400); RDW Coefficient of Variation 14.5 % (11.5-14.5); RDW Standard Deviation 47.4 fL (36.4-46.3); Red Blood Count 3.63 M/uL (3.93-5.22); White Blood Count 10.74 K/ul (4.8-10.8)
[2022-05-28 07:08] LABS: Albumin Globulin Ratio 1.2 (0.9-2); Albumin Level 3.5 gm/dl (3.4-5.0); BUN Creatinine Ratio 18.9 (10-20); Bilirubin,Total 0.3 mg/dl (0.2-1.0); Calcium 8.5 mg/dl (8.5-10.1); Creatinine Clr Calc Pharmacy 49.2 ml/min; Est GFR (African American) 68.5 ml/min; Est GFR (Non-African American) 59.1 ml/min; Magnesium 2.3 mg/dl (1.7-2.4); Potassium 3.7 mmol/L (3.5-5.1); Total Protein 6.5 gm/dl (6.0-8.3)
[2022-05-28] MEDS: ALBUT/IPRATROP 3MG/0.5MG NEB 3 ML VIAL NEB SCH ×4 (07:23→19:49)
[2022-05-28] MEDS: guaiFENesin 600 MG TABCR PO SCH ×2 (08:03→21:27)
[2022-05-28] MEDS: ENOXAPARIN INJ 40 MG/0.4 ML SYR SQ SCH (08:03)
[2022-05-28] MEDS: predniSONE 20 MG TAB PO SCH (08:03)
[2022-05-28] MEDS: cefTRIAXone SODIUM 2,000 MG in DEXTROSE 5% 50 ML IV SCH (08:09)
[2022-05-28] MEDS: AZITHROMYCIN 500 MG in DEXTROSE 5% 250 ML IV SCH (08:45)
--- NOTE | 2022-05-28 18:45 | Hospitalist Progress Note ---
Date of Service May 28, 2022 Assessment & Plan (1) Acute respiratory failure with hypoxia: Plan: Acute respiratory failure with hypoxia/RSV infection/secondary bacterial left lower lobe pneumonia- Guaifenesin extended release 12 mg p.o. twice daily Zofran 4 mg IV every 6 hours as needed Nasal cannula oxygen, titrate to keep pulse ox > 90% (2) RSV infection: Plan: RSV pneumonia -symptomatic management (3) Reactive airway disease: Plan: No history of reactive airway disease / COPD / asthma however she remains significantly wheezing on exam although with questionable improvement to duo nebs Solu-medrol 40mg IV given on admission, will switch to prednisone 40mg PO daily for another 2 days Continue duonebs QID (4) Left lower lobe pneumonia: Plan: Ceftriaxone 2 g IV daily for 7 days -plan to switch to Augmentin on discharge. Azithromycin 500 mg IV/PO daily for 3 days (5) Acute hypokalemia: Plan: Suspect secondary to hydrochlorothiazide. We will continue to monitor and replace daily. (6) Hypertension: Plan: Hold HCTZ Plan VTE Prophylaxis - Lovenox 40mg SQ daily Diet - heart health Disposition -continued admission on [facility] due to possible need for placement Admission and Anticipated Discharge Date Admission Date: May 26, 2022 Subjective Patient reports her is currently in the emergency room with similar symptoms. She remains significantly short of breath. Concerned about returning home at this time especially with her sick as well. Continues to cough of yellow sputum. Review of Systems Review of Systems: All systems reviewed & are unremarkable except as noted in Subjective Physical Exam Constitutional: WD/WN, vitals as above Respiratory: normal respiratory effort and able to speak in complete sentences; expiratory phase not prolonged and no pursed lip breathing Auscultation: + diminished lung sounds (left base), + crackles (left base) and + wheezes (expiratory) Cardiovascular: RRR, no murmur, no edema Gastrointestinal (Abdomen): normal bowel sounds, soft, nontender, no hepatosplenomegaly Psychiatric: A+Ox3, euthymic affect Results & Data Results & Data ([facility]) Vital Signs (Past 12 Hours) Vital Signs Temp Pulse Pulse Resp BP BP Pulse Ox 05/28/22 15:34 74 18 96 05/28/22 15:23 36.9 C 68 18 145/78 H 93 05/28/22 14:50 96 05/28/22 13:00 05/28/22 11:52 36.8 C 66 18 148/82 H 93 05/28/22 11:39 80 20 95 05/28/22 10:25 05/28/22 10:07 05/28/22 07:45 36.4 C L 64 18 162/79 H 96 05/28/22 07:24 64 18 95 05/28/22 07:18 70 Pulse Ox Pulse Ox Pulse Ox O2 Del Method O2 Del Method O2 Flow Rate O2 Flow Rate 05/28/22 15:34 Nasal Cannula 2 05/28/22 15:23 Nasal Cannula 2 05/28/22 14:50 05/28/22 13:00 94 Nasal Cannula 05/28/22 11:52 Nasal Cannula 2 05/28/22 11:39 Nasal Cannula 2 05/28/22 10:25 94 92 2 05/28/22 10:07 Room Air 2 05/28/22 07:45 Nasal Cannula 2 05/28/22 07:24 Nasal Cannula 2 05/28/22 07:18 O2 Flow Rate O2 Flow Rate 05/28/22 15:34 05/28/22 15:23 05/28/22 14:50 05/28/22 13:00 2 05/28/22 11:52 05/28/22 11:39 05/28/22 10:25 2 05/28/22 10:07 05/28/22 07:45 05/28/22 07:24 05/28/22 07:18 PG Care Time/CCT Total # of Minutes Spent Total Time Spent with Patient: Total time spent is greater than 50% in coordination of care (as documented) at patient's floor/unit and/or counseling patient: Coding Level of Care Code 78652 Subseq Hosp Care Lvl 2 Diagnoses Acute respiratory failure with hypoxia J96.01 RSV infection B33.8 Reactive airway disease J45.909 Left lower lobe pneumonia J18.9 Acute hypokalemia E87.6 Hypertension I10
[2022-05-29] MEDS: ALBUT/IPRATROP 3MG/0.5MG NEB 3 ML VIAL NEB SCH ×4 (05:27→19:25)
[2022-05-29] MEDS: cefTRIAXone SODIUM 2,000 MG in DEXTROSE 5% 50 ML IV SCH (07:42)
[2022-05-29] MEDS: predniSONE 20 MG TAB PO SCH (07:43)
[2022-05-29] MEDS: guaiFENesin 600 MG TABCR PO SCH ×2 (07:43→21:26)
[2022-05-29] MEDS: ENOXAPARIN INJ 40 MG/0.4 ML SYR SQ SCH (07:44)
[2022-05-29] MEDS ORDERED: AZITHROMYCIN 250 MG TAB PO ONE (09:00)
[2022-05-29 09:20] LABS: Basophils # (auto) 0.02 K/uL (0-0.2); Basophils % (auto) 0.2 %; Eosinophils # (auto) 0.04 K/uL (0-0.50); Eosinophils % (auto) 0.5 %; Hematocrit (blood only) 34.9 % (34.1-44.9); Hemoglobin 11.9 g/dl (12.0-16.0); Immature Granulocytes # (auto) 0.19 K/uL (0.00-0.02); Immature Granulocytes % (auto) 2.3 %; Lymphocytes # (auto) 2.24 K/uL (1.2-3.4); Lymphocytes % (auto) 26.8 %; Mean Corpuscular Hemoglobin 31.1 pg (25.0-34.0); Mean Corpuscular Hgb Conc 34.1 g/dL (32.0-36.0); Mean Corpuscular Volume 91.1 fL (80.0-100.0); Mean Platelet Volume 9.8 fL (9.4-12.3); Monocytes # (auto) 0.46 K/uL (0.24-0.82); Monocytes % (auto) 5.5 %; Neutrophils # (auto) 5.42 K/uL (1.4-6.5); Neutrophils % (auto) 64.7 %; Platelet Count 218 K/uL (130-400); RDW Coefficient of Variation 14.6 % (11.5-14.5); RDW Standard Deviation 49.1 fL (36.4-46.3); Red Blood Count 3.83 M/uL (3.93-5.22); White Blood Count 8.37 K/ul (4.8-10.8)
[2022-05-29 09:45] LABS: Albumin Globulin Ratio 1.1 (0.9-2); Albumin Level 3.6 gm/dl (3.4-5.0); BUN Creatinine Ratio 19.3 (10-20); Bilirubin,Total 0.3 mg/dl (0.2-1.0); Calcium 8.6 mg/dl (8.5-10.1); Creatinine Clr Calc Pharmacy 50.4 ml/min; Est GFR (African American) 70.4 ml/min; Est GFR (Non-African American) 60.8 ml/min; Globulin 3.2 gm/dl (2.5-4.0); Magnesium 2.2 mg/dl (1.7-2.4); Potassium 3.6 mmol/L (3.5-5.1); Total Protein 6.8 gm/dl (6.0-8.3)
--- NOTE | 2022-05-29 18:35 | Hospitalist Progress Note ---
Date of Service May 29, 2022 Assessment & Plan (1) Acute respiratory failure with hypoxia: Plan: Acute respiratory failure with hypoxia/RSV infection/secondary bacterial left lower lobe pneumonia- Guaifenesin extended release 12 mg p.o. twice daily Zofran 4 mg IV every 6 hours as needed Nasal cannula oxygen, titrate to keep pulse ox > 90% (2) RSV infection: Plan: RSV pneumonia -symptomatic management (3) Reactive airway disease: Plan: No history of reactive airway disease / COPD / asthma however she remains significantly wheezing on exam although with questionable improvement to duo nebs Still not having significant improvement with DuoNeb's therefore suspect that this is more bronchiolitis causing her wheezing rather than reactive airway disease. We will continue prednisone for 1 more day and DuoNebs as needed but can stop after that despite ongoing wheezing. (4) Left lower lobe pneumonia: Plan: Ceftriaxone 2 g IV daily for 7 days -plan to switch to Augmentin on discharge. Azithromycin 500 mg IV/PO daily for 3 days (5) Acute hypokalemia: Plan: Suspect secondary to hydrochlorothiazide. Now resolved. (6) Hypertension: Plan: Hold HCTZ Plan VTE Prophylaxis - Lovenox 40mg SQ daily Diet - heart health Disposition -continued admission on [facility] due to possible need for placement Admission and Anticipated Discharge Date Admission Date: May 26, 2022 Subjective Remains very wheezy. Physical therapy recommending rehab although this appears to been news to her. Currently in her 's room since he is also in hospi melva with RSV. Review of Systems Review of Systems: All systems reviewed & are unremarkable except as noted in Subjective Physical Exam Constitutional: WD/WN, vitals as above Respiratory: normal respiratory effort and able to speak in complete sentences; no labored breathing, does not use accessory muscles, expiratory phase not prolonged and no pursed lip breathing Auscultation: + diminished lung sounds (left base), + crackles (left base) and + wheezes (expiratory) Cardiovascular: RRR, no murmur, no edema Gastrointestinal (Abdomen): normal bowel sounds, soft, nontender, no hepatosplenomegaly Psychiatric: A+Ox3, euthymic affect Results & Data Results & Data ([facility]) Vital Signs (Past 12 Hours) Vital Signs Temp Pulse Resp BP Pulse Ox O2 Del Method O2 Flow Rate 05/29/22 15:35 37.0 C 70 18 137/82 94 Nasal Cannula 2 05/29/22 15:31 70 20 95 Nasal Cannula 2 05/29/22 11:45 65 18 93 Nasal Cannula 2 05/29/22 08:00 Nasal Cannula 2 05/29/22 07:39 36.7 C 63 18 146/83 H 93 Nasal Cannula 2 PG Care Time/CCT Total # of Minutes Spent Total Time Spent with Patient: Total time spent is greater than 50% in coordination of care (as documented) at patient's floor/unit and/or counseling patient: Coding Level of Care Code 77244 Subseq Hosp Care Lvl 2 Diagnoses Acute respiratory failure with hypoxia J96.01 RSV infection B33.8 Reactive airway disease J45.909 Left lower lobe pneumonia J18.9 Acute hypokalemia E87.6 Hypertension I10
[2022-05-30] MEDS: ALBUT/IPRATROP 3MG/0.5MG NEB 3 ML VIAL NEB SCH (07:06)
--- NOTE | 2022-05-30 07:37 | XRay Report ---
SINGLE VIEW CHEST CLINICAL HISTORY: Hypoxia FINDINGS: An AP, portable, upright chest radiograph is compared to study dated 05/26/2022. The heart is enlarged noting atherosclerotic calcification of the thoracic aorta. The pulmonary vasculature is noncongested. Chronic interstitial thickening is somewhat a previous. There is left basilar consolida tion and a small left pleural effusion. Atelectasis is noted at the right lung base. No pneumothorax is seen. The skeletal structures are osteopenic. The bony thorax is grossly intact. IMPRESSION: 1. Left basilar consolidation and small left pleural effusion. This is similar to 05/26/2022. 2. Cardiomegaly without radiographic evidence of congestive failure. ACT 112: Negative or not required by law. Electronically signed by: Ludin Sanford M.D. 05/30/2022 7:36 AM
[2022-05-30] MEDS ORDERED: ALBUT/IPRATROP 3MG/0.5MG NEB 3 ML VIAL NEB PRN (07:44)
[2022-05-30] MEDS: guaiFENesin 600 MG TABCR PO SCH ×2 (09:38→19:26)
[2022-05-30] MEDS: ENOXAPARIN INJ 40 MG/0.4 ML SYR SQ SCH (09:38)
[2022-05-30] MEDS: cefTRIAXone SODIUM 2,000 MG in DEXTROSE 5% 50 ML IV SCH (09:42)
--- NOTE | 2022-05-30 16:37 | Hospitalist Progress Note ---
Date of Service May 30, 2022 Assessment & Plan (1) Acute respiratory failure with hypoxia: Plan: Acute respiratory failure with hypoxia/RSV infection/secondary bacterial left lower lobe pneumonia- Guaifenesin extended release 12 mg p.o. twice daily Zofran 4 mg IV every 6 hours as needed Nasal cannula oxygen, titrate to keep pulse ox > 90% (2) RSV infection: Plan: RSV pneumonia - symptomatic management (3) Reactive airway disease: Plan: Possible diagnosis although suspect wheezing is bronchiolitis due to RSV rather than upper airway reactive airway disease No history of reactive airway disease / COPD / asthma Switch duo nebs to as needed. Last dose of prednisone today. (4) Left lower lobe pneumonia: Plan: Finish 7-day course of typical pneumonia coverage with Augmentin (switched from ceftriaxone - today's dose infiltrated). Azithromycin 500 mg IV/PO daily for 3 day - now finished. (5) Acute hypokalemia: Plan: Suspect secondary to hydrochlorothiazide. Now resolved. (6) Hypertension: Plan: Hold HCTZ due to hypokalemia Plan VTE Prophylaxis - Lovenox 40mg SQ daily Diet - heart healthY Disposition - medically stable for discharge awaiting placement this time Admission and Anticipated Discharge Date Admission Date: May 26, 2022 Subjective Feels better today. Initially keen to be discharged home however on discussion with her (who is also hospitalized with RSV in 282) and manager of case management; plan is to be discharged to rehab. [facility] authorization pending. Still significant short of breath on exertion but much better at rest. Cough improving. Eating and drinking well. Review of Systems Review of Systems: All systems reviewed & are unremarkable except as noted in Subjective Physical Exam Constitutional: WD/WN, vitals as above Respiratory: normal respiratory effort and able to speak in complete sentences; no labored breathing, does not use accessory muscles, expiratory phase not prolonged and no pursed lip breathing Auscultation: + diminished lung sounds (left base); no crackles, no rales, no rhonchi and no wheezes Cardiovascular: RRR, no murmur, no edema Gastrointestinal (Abdomen): normal bowel sounds, soft, nontender, no hepatosplenomegaly Psychiatric: A+Ox3, euthymic affect Results & Data Results & Data ([facility]) Vital Signs (Past 12 Hours) Vital Signs Temp Pulse Resp BP Pulse Ox Pulse Ox O2 Del Method 05/30/22 15:59 Room Air 05/30/22 13:00 92 05/30/22 15:23 36.8 C 65 20 148/81 H 91 Room Air 05/30/22 08:32 36.9 C 71 16 157/83 H 90 Room Air 05/30/22 07:07 77 18 94 Room Air O2 Del Method 05/30/22 15:59 05/30/22 13:00 Room Air 05/30/22 15:23 05/30/22 08:32 05/30/22 07:07 PG Care Time/CCT Total # of Minutes Spent Total Time Spent with Patient: Total time spent is greater than 50% in coordination of care (as documented) at patient's floor/unit and/or counseling patient: Coding Level of Care Code 33894 Subseq Hosp Care Lvl 1 Diagnoses Acute respiratory failure with hypoxia J96.01 RSV infection B33.8 Reactive airway disease J45.909 Left lower lobe pneumonia J18.9 Acute hypokalemia E87.6 Hypertension I10
[2022-05-30] MEDS: ADVANCED PROBIOTIC 1250 MG CAPSULE PO SCH (17:16)
[2022-05-30] MEDS ORDERED: AMOXICILLIN/CLAVULANATE 875 MG TAB PO ONE (21:36)
[2022-05-31] MEDS: ENOXAPARIN INJ 40 MG/0.4 ML SYR SQ SCH (07:34)
[2022-05-31] MEDS: guaiFENesin 600 MG TABCR PO SCH (07:34)
[2022-05-31] MEDS: ADVANCED PROBIOTIC 1250 MG CAPSULE PO SCH (07:35)
[2022-05-31] MEDS: AMOXICILLIN/CLAVULANATE 875 MG TAB PO SCH ×2 (08:33→17:47)
[2022-05-31] MEDS ORDERED: Nursing to Pharmacy Communication SCH (10:00)
--- NOTE | 2022-06-06 22:11 | Discharge Summary ---
Date of Service May 31, 2022 Admission HPI Per Admitting Provider The patient is an 82-year-old female with a past medical history including GERD, anxiety, midline cystocele, hyperlipidemia, hypertension, insomnia, osteoporosis, palpitations, rosacea and cerumen impaction. She presented to the emergency department with shortness of breath and generalized weakness. Work-up in the emergency department included a chest x- ray which showed a left lower lobe pneumonia and pleural effusion. Viral studies showed a RSV positive test. From the emergency department she received ceftriaxone IV, doxycycline IV and potassium chloride 10 mEq IV x2. Significant abnormal laboratories: WBC 12.59, sodium 131, potassium 2.9, glucose 157 and RSV positive. Principal Diagnosis acute respiratory failure with hypoxia Discharge Exam Constitutional WD/WN, vitals as above Respiratory normal respiratory effort and able to speak in complete sentences; no labored breathing, does not use accessory muscles, expiratory phase not prolonged and no pursed lip breathing Auscultation: + diminished lung sounds (left base); no crackles, no rales, no rhonchi and no wheezes Cardiovascular RRR, no murmur, no edema Gastrointestinal (Abdomen) normal bowel sounds, soft, nontender, no hepatosplenomegaly Psychiatric A+Ox3, euthymic affect Discharge Data Allergies Allergy/AdvReac Type Severity Reaction Status Date / Time fexofenadine [From Naomi] Allergy Seizure Verified 05/30/22 21:38 Consultations 05/26/22 22:35 ED Decision to Admit Stat Ordered Studies 05/26/22 20:50 CT head/brain wo con Stat Hospital Course (1) Acute respiratory failure with hypoxia: Acute respiratory failure with hypoxia/RSV infection/secondary bacterial left lower lobe pneumonia- Guaifenesin extended release 12 mg p.o. twice daily Zofran 4 mg IV every 6 hours as needed Nasal cannula oxygen,slowly weaned down back to room air. Augmentin will be prescribed to complete course. (2) RSV infection: RSV pneumonia - symptomatic management (3) Reactive airway disease: Possible diagnosis although suspect wheezing is bronchiolitis due to RSV rather than upper airway reactive airway disease No history of reactive airway disease / COPD / asthma Switch duo nebs to as needed. Last dose of prednisone today. (4) Left lower lobe pneumonia: Finish 7-day course of typical pneumonia coverage with Augmentin (switched from ceftriaxone - today's dose infiltrated). Azithromycin 500 mg IV/PO daily for 3 day - now finished. (5) Acute hypokalemia: Suspect secondary to hydrochlorothiazide. Now resolved. (6) Hypertension: held HCTZ due to hypokalemia Plan VTE Prophylaxis - Lovenox 40mg SQ daily Diet - heart healthY Disposition - medically stable for discharge Total Time Total Time Spent Total Time Spent (In Minutes): 35 Discharge Plan Discharge Items Patient Disposition: Home - Self-Care Reason For Visit: RSV, SECONDARY BACTERIAL PNEUMONIA Discharge Diagnosis: RSV bronchiolitis/pneumonia Secondary bacterial pneumonia Activity: Resume your previous activity Non-emergency contact: Primary Care Provider Call non-emergency contact if: you have any medication questions Follow-up/Referrals: Mai Caceres MD [Primary Care Provider] - 06/08/22 11:30 am Diet: Heart Healthy Addtl Attending Provider Instructions: You have been hospitalized for an acute medical problem. During your stay at [facility], we have made an effort to correct the problem that brought you to the hospital while keeping you as comfortable as possible. Medications were used to bring your condition under control and your discharge instructions will include directions for any medications you should take after leaving the hospital. Please make sure you see your Primary Care Provider as part of your follow up plan. Pending Studies at Discharge: No Stand-Alone Forms: My [facility], Smoking Cessation Medications and DC Order Prescriptions: New guaifenesin [Mucinex] 600 mg Tablet Extended Release 12hr 1,200 mg PO Q12 Qty: 0 0RF amoxicillin-pot clavulanate 875-125 mg Tablet 1 tab PO BIDM Qty: 0 0RF Continued hydrochlorothiazide 12.5 mg capsule 12.5 mg PO QAM Discharge Orders: Discharge Order (Routine); Ordered 05/31/22 Ordered By: Trent Chi Admission Data Admit Date/Time: 05/26/22 23:26 Attending Provider: Trent Chi Admit Provider: Fausto Gamble Primary Care Provider: Mai Caceres Other Providers: Fausto Gamble ; [facility] Other Interventions: Discharge Summary Assessment (RN) Last Done: 05/31/22 16:46 Coding Level of Care Code D/C DAY MANAGEMENT >30 MINS Diagnoses Acute respiratory failure with hypoxia J96.01 RSV infection B33.8 Reactive airway disease J45.909 Left lower lobe pneumonia J18.9 Acute hypokalemia E87.6 Hypertension I10
== END 2022-05-31 18:20 | DRG 189 ==
LOC: ED 20:24 → 2W 23:26 → SUATTDRO 23:26 → 2W 05-27 00:40
DX: K21.9 Gastro-esophageal reflux disease without esophagitis; J12.1 Respiratory syncytial virus pneumonia; Z88.8 Allergy status to other drugs, medicaments and biological substances; E78.5 Hyperlipidemia, unspecified; J18.9 Pneumonia, unspecified organism; T50.2X5A Adverse effect of carbonic-anhydrase inhibitors, benzothiadiazides and other diuretics, initial encounter; I10 Essential (primary) hypertension; J96.01 Acute respiratory failure with hypoxia; E87.6 Hypokalemia; Z79.899 Other long term (current) drug therapy

== ENCOUNTER 2023-06-08 22:04 | Inpatient (IN) ==
--- OUTSIDE RECORDS SUMMARY | 2023-06-08 22:09 | External Medical Summary | Summary of Care ---
Author Name Unknown Organization [facility] Address [address] [place] [address] Phone [phone] Care Team Providers Care Multineedle Shirrer Name Role Phone Cali Salamanca MD Primary Care Provide r Reason for Visit * Reason Onset Date Comments Appointment 03/13/2023 Encounter Details Date Type Department Care Team Description 03/13/2023 Telephone Care at Home [address] [place] [address] Services, Scheduling [address] [place] [address] Appointment Allergies No known active allergiesdocumented as of this encounter (statuses as of 03/13/2023) Medications Medication Sig Dispensed Refills Start Date End Date Status LORAZEPAM 0.5 MG PO TABS 1 tablet 1-3 times daily 0 Active Ranitidine HCl (ZANTAC) 75 MG Tablet Take 75 mg by mouth 2 times a day. 0 Active documented as of this encounter (statuses as of 03/13/2023) Active Problems Problem Noted Date Temporomandibular joint disorders, unspe cified 11/15/2009 Cough 09/12/2008 Sensorineural hearing loss, bilateral History of tobacco use 09/06/2008 Chronic otitis externa 09/06/2008 Esophageal reflux 09/06/2008 Chronic rhinitis 09/06/2008 Subjective tinnitus 09/06/2008 Other specified forms of hearing loss Dysphagia, pharyngoesophageal phase 03/2009 VOICE DISTURBANCE ,HOARSENESS 09/06/2008 Dyspnea and respiratory abnormality 03/2009 Overview: ICD-10 update of inactive term Impacted haileyumen 09/06/2008 documented as of this encounter (statuses as of 03/13/2023) Social History Tobacco Use Types Packs/Day Years Used Date Smoking Tobacco: Former Cigarettes 0.5 30 Q uit: 10/23/2008 Smokeless Tobacco: Never Alcohol Use Standard Drinks/Week Comments No 0 (1 standard drink = 0.6 oz pur e alcohol) Sex Assigned at Date Recorded Not on file documented as of this encounter Miscellaneous Notes * Telephone Encounter - SUSAN Mora - 03/13/2023 9:56 AM EDT Care At Home Outreach Call attempt: 1st Call Call result: Call Unsuccessful - Ineligible: Annual wellness visit not due until: 11/2023 documented in this encounter Plan of Treatment Health Maintenance Due Date Last Done Comments DXA Scan 1940 COVID-19 Vaccine (#1) 1940 Depression Screening 1952 DTaP,Tdap,and Td Vaccines (1 - Tdap) 1958 Pneumococcal Vaccine: 65+ Ye ars (1 - PCV) 2004 Zoster Vaccines (2 of 3) 09/29/2015 08/04/2015 Influenza Vaccine (FLU shot) (#1) 2023 018 GARDASIL-HPV IMMUNIZATION SERIES Aged Out No longer eligible based on patient's age to complete this topic Hepatitis B Aged Out No longer eligi ble based on patient's age to complete this topic MENINGOCOCCAL (MENACTRA/MENVEO) Aged Out No longer eligible based on patient's age to complete this topic documented as of this encounter Medical Devices Not on filedocumented as of this encounter Care Teams Multineedle Shirrer Relationship Specialty Start Date End Date Cali Salamanca MD PCP - General Family Medicine 10/24/15 documented as of this encounter
[2023-06-08] MEDS ORDERED: SODIUM CHLORIDE 0.9% 500 ML IV SCH (22:15)
--- NOTE | 2023-06-08 22:18 | Emergency Department Note ---
Impression & Plan Weakness, Confusion, Fever, Fall, COVID-19 ED Provider Note NAME: ASHLEIGH NÚÑEZ AGE: 83 SEX: F : 1940 ARRIVES VIA: Ambulance INFORMANT: [Patient][EMS, nursing] ED PROVIDER(S): [Ludin Padilla MD] CHIEF COMPLAINT: Altered mental status HISTORY OF PRESENT ILLNESS: The patient is an 83-year-old female who was found to be more confused today by family. As per family, she could not support herself, she could not stand. She apparently fell backwards into a chair. No loss of consciousness. BSG was noted to be 131. The patient denies any issues with headache, chest pain or shortness of breath. No recent nausea, vomiting or diarrhea, no abdominal pain, no urinary complaints. She does not have any one-sided weakness. She feels at baseline right now. PMHx/PSHx/Social Hx: See Below PHYSICAL EXAM: GENERAL: Patient is in no acute distress. HEENT: No acute trauma, normocephalic atraumatic, mucous membranes moist, no nasal congestion. NECK: No stridor, no adenopathy, no meningismus, trachea is midline. LUNGS: Clear to auscultation bilaterally, no wheeze, no rhonchi, breath sounds equal. HEART: Without murmurs gallops or rubs, regular rate and rhythm. ABDOMEN: Soft, nontender, no peritonitis. EXTREMITIES: No cyanosis, full range of motion of all the joints without pain or difficulty. NEUROLOGIC: Awake and alert, no acute motor or sensory deficits, no focal weakness. No speech slur, no extremity weakness, no cerebellar dysfunction. No facial droop. SKIN: No jaundice, no diaphoresis. DIFFERENTIAL DIAGNOSIS: Stroke or TIA, intracranial bleeding, UTI, dysrhythmia, electrolyte imbalance, anemia, viral illness, among others. EMERGENCY DEPARTMENT PROCEDURES: MEDICAL DECISION MAKING: There is no leukocytosis or concerning anemia. There is a normal platelet count. No renal failure or significant electrolyte abnormality. Lactic acid level is not elevated making sepsis less likely. There is no concerning liver enzyme elevation. The patient appeared to be in a euthyroid state. ECG shows a sinus rhythm with LVH, no obvious ischemia. Cardiac enzyme testing x 1 is not consistent with acute cardiac injury. Urinalysis shows some potential dehydration, no infection. COVID test returned positive. Influenza and RSV test returned negative. Chest film shows some chronic change at the left base, I see no true pneumonia, no CHF. Brain CT shows no acute bleed or mass effect. On exam, the patient did not have any one-sided weakness. There was no facial droop or speech slur. Stroke scale was 0. The patient's family arrived, they feel she is too weak to even stand. They are not comfortable with taking her home. Patient was given oral Tylenol, she was given IV saline. The patient has COVID-19, this has led to her confusion and weakness. She is not safe with discharge. She will be hospitalized, she may even require rehab at some point. I did speak with case management, the on-call hospitalist was consulted. Prior/Outside records/notes reviewed: EMS notes. ECG per my interpretation: Indication was weakness. The ECG shows a normal sinus rhythm with a rate of 73. LVH is present. There is no ST elevation, no PVCs. The QTc is 442. Continuous Cardiac Monitoring per my interpretation: An order was placed for continuous cardiac monitoring. The monitor shows a rate of 69 with normal sinus rhythm. Imaging/x-ray results per my interpretation: Chest x-ray shows some chronic changes at the left base, there is no pneumonia or pneumothorax. Chronic Medical/Social conditions affecting care: Advanced age. Care/Management discussed with: Case management, the on-call hospitalist. Level of care consideration(s): After review of the information above and other included data: --I believe the patient requires escalation of care to admission Critical Care Note: I have personally spent 41 minutes of critical care time in the direct management of this patient. This includes bedside care, interpretation of diagnostic studies, and testing, discussion with consultants, patient, and family members, and other required patient management activities. This 41 minutes is in excess of all separately billable procedures. DISPOSITION: Admission Past Med/Surg History Medical History Change in vision History of actinic keratosis Prolapse of vaginal vault after hysterectomy Rectocele Rhinitis Seborrheic keratosis Surgical History History of parathyroid surgery History of oophorectomy History of hysterectomy Family History Mother Breast cancer Sister Breast cancer Other Family history of breast cancer Denies family history of Ovarian cancer Prostate cancer Myocardial infarction Colorectal cancer Social History Smoking Status: Former smoker Tobacco Type: Cigarettes Second Hand Exposure: No; Do You Dip or Chew Tobacco: No; Hx Alcohol Use: No Hx Substance Use: No Preferred Language: Occitan Communication Ability: Effective Visual Impairment: Limited Hearing Ability: Hard of Hearing Plasterer Maintenance Required: No Beliefs That Will Affect Care: None marital status: Current Living Situation: Spouse current occupational status: retired How many Children do You have: 1 Feels Safe at Home: Yes Childhood Exposure to Second-Hand Smoke: No Diet: regular caffeine: Yes (coffee) during the past year weight has: remained stable Dental Care, Regularly: No Physical Activity Frequency: Does not Exercise Seatbelt Use: always Sunscreen Use: Yes Assistive Devices: Cane and Glasses Allergies Allergies Allergy/AdvReac Type Severity Reaction Status Date / Time fexofenadine [From Naomi] Allergy Seizure Verified 06/08/23 22:20 Home Meds Home Medications Medication Instructions Recorded Confirmed multivitamin (Multiple Vitamins 1 tab PO DAILY 06/08/23 06/08/23 tablet) Results & Data (ED) Vital Signs Vital Signs - 24 hr 06/08/23 22:26 06/08/23 22:37 06/08/23 22:38 Temperature 38.1 C H Temperature Source Oral Pulse Rate 68 73 Pulse Rate [Right Finger] Pulse Rate from SpO2 Sensor 74 Pulse Rhythm Regular Pulse Strength Normal Respiratory Rate 18 30 H Respiratory Effort / Characteristics Non-Labored Spontaneous Respiratory Depth Normal Respiratory Pattern Regular Blood Pressure 113/71 Blood Pressure [Left Arm] Blood Pressure Mean 85 Blood Pressure Mean [Left Arm] Blood Pressure Position Semi-fowlers Pulse Oximetry 95 95 95 Oxygen Delivery Method Room Air Room Air Oxygen Flow Rate 0 Sepsis Recent Fever Within 48 Hours No Sepsis New/Unexplained Change in Mental Status Yes Sepsis Action Taken by Nursing Physician Notified 06/08/23 22:38 06/08/23 22:41 06/08/23 22:59 Temperature Temperature Source Pulse Rate 66 75 74 Pulse Rate [Right Finger] Pulse Rate from SpO2 Sensor 74 Pulse Rhythm Regular Pulse Strength Respiratory Rate 18 20 Respiratory Effort / Characteristics Respiratory Depth Respiratory Pattern Blood Pressure Blood Pressure [Left Arm] Blood Pressure Mean Blood Pressure Mean [Left Arm] Blood Pressure Position Pulse Oximetry 95 94 Oxygen Delivery Method Room Air Oxygen Flow Rate Sepsis Recent Fever Within 48 Hours Sepsis New/Unexplained Change in Mental Status Sepsis Action Taken by Nursing 06/08/23 23:00 06/08/23 23:00 06/08/23 23:30 Temperature Temperature Source Pulse Rate 73 70 Pulse Rate [Right Finger] 73 Pulse Rate from SpO2 Sensor 73 70 Pulse Rhythm Pulse Strength Respiratory Rate 19 20 18 Respiratory Effort / Characteristics Respiratory Depth Respiratory Pattern Blood Pressure 152/81 H Blood Pressure [Left Arm] 152/81 H Blood Pressure Mean 104 Blood Pressure Mean [Left Arm] 104 Blood Pressure Position Pulse Oximetry 93 94 95 Oxygen Delivery Method Room Air Oxygen Flow Rate Sepsis Recent Fever Within 48 Hours Sepsis New/Unexplained Change in Mental Status Sepsis Action Taken by Nursing 06/09/23 00:00 06/09/23 00:06 06/09/23 00:24 Temperature 36.5 C Temperature Source Oral Oral Pulse Rate 69 Pulse Rate [Right Finger] Pulse Rate from SpO2 Sensor 69 Pulse Rhythm Pulse Strength Respiratory Rate 18 Respiratory Effort / Characteristics Respiratory Depth Respiratory Pattern Blood Pressure Blood Pressure [Left Arm] Blood Pressure Mean Blood Pressure Mean [Left Arm] Blood Pressure Position Pulse Oximetry 94 Oxygen Delivery Method Oxygen Flow Rate Sepsis Recent Fever Within 48 Hours Sepsis New/Unexplained Change in Mental Status Sepsis Action Taken by Skilled Nursing Medications Current Medication List: was personally reviewed by me Laboratory Data Attestation: I reviewed the patient's lab results. 06/08/23 22:20 06/08/23 22:20 Lab Results 06/08/23 06/08/23 06/08/23 Range/Units 21:18 22:20 23:39 WBC 9.82 (4.8-10.8) K/ul RBC 4.26 (4.20-5.40) M/uL Hgb 13.2 (12.0-16.0) g/dl Hct 38.8 (37.0-47.0) % MCV 91.1 (80.0-100.0) fL MCH 31.0 (25.0-34.0) pg MCHC 34.0 (32.0-36.0) g/dL RDW Std Deviation 48.5 H (36.4-46.3) fL RDW Coeff of Alva 14.3 (11.5-14.5) % Plt Count 190 (130-400) K/uL MPV 10.3 (9.4-12.4) fL Immature Gran % (Auto) 0.4 % Neut % (Auto) 87.9 % Lymph % (Auto) 5.7 % Sac % (Auto) 5.6 % Eos % (Auto) 0.2 % Baso % (Auto) 0.2 % Neut # (Auto) 8.63 H (1.40-6.50) K/uL Lymph # (Auto) 0.56 L (1.20-3.40) K/uL Sac # (Auto) 0.55 (0.11-0.59) K/uL Eos # (Auto) 0.02 (0.00-0.50) K/uL Baso # (Auto) 0.02 (0.00-0.20) K/uL Immature Gran # (Auto) 0.04 (0.01-0.20) K/uL Sodium 139 (136-145) mmol/L Potassium 3.6 (3.5-5.1) mmol/L Chloride 106 (98-107) mmol/L Carbon Dioxide 24 (21-32) mmol/L Anion Gap 9 (3-11) BUN 14 (6-23) mg/dl Creatinine 0.89 (0.6-1.2) mg/dl Est Cr Clr Drug Dosing 47.2 ml/min Est GFR ( Amer) 69.0 ml/min Est GFR (Non-Af Amer) 59.5 ml/min BUN/Creatinine Ratio 15.7 (10-20) Glucose 120 H (70-99(Fasting)) mg/dl Lactate 0.8 (0.4-2.0) mmol/L Calcium 9.1 (8.6-10.3) mg/dl Magnesium 2.1 (1.7-2.4) mg/dl Total Bilirubin 0.5 (0.2-1.0) mg/dl AST 15 (13-39) U/L ALT 14 (7-52) U/L Alkaline Phosphatase 85 (34-104) U/L Troponin I High Sens 4.6 (0-14) pg/ml Total Protein 7.4 (6.0-8.3) gm/dl Albumin 4.3 (3.4-5.0) gm/dl Globulin 3.1 (2.5-4.0) gm/dl Albumin/Globulin Ratio 1.4 (0.9-2) TSH 0.691 (0.300-4.500) uIu/ml Urine Color Yellow Urine Appearance Clear (Clear) Urine pH 7.0 (4.5-7.5) Ur Specific [place] 1.023 (1.000-1.030) Urine Protein Negative (Negative) Urine Glucose (UA) Negative (Negative) Urine Ketones 1+ H (Negative) Urine Blood Negative (Negative) Urine Nitrite Negative (Negative) Urine Bilirubin Negative (Negative) Urine Urobilinogen Negative (Negative) Ur Leukocyte Esterase Negative (Negative) SARS-CoV-2 (PCR) POSITIVE A* (Negative) Influenza Type A (PCR) Negative (Neg) Influenza Type B (PCR) Negative (Neg) RSV (RT-PCR) Negative (Neg) Administered Medications Discontinued Medications Acetaminophen (Acetaminophen 500 Mg Tab) 1,000 mg PO NOW STA Stop: 06/08/23 22:49 Last Admin: 06/08/23 22:59 Dose: 1,000 mg Documented By: KE Sodium Chloride (Nss) 500 mls @ 999 mls/hr IV .Q31M KATIE Stop: 06/08/23 22:45 Last Infusion: 06/08/23 23:35 Dose: Infused Documented By: Admin: 06/08/23 22:50 Dose: 999 mls/hr Documented By: JULIANA Imaging Data Radiologist's Impression: Head CT 06/08/23 22:15 Exam(s): CT HEAD Without Contrast EXAM: CT Head Without Intravenous Contrast CLINICAL HISTORY: Reason for exam: altered. TECHNIQUE: Axial computed tomography images of the head/brain without intravenous contrast. CTDI is 38.7 mGy and DLP is 547.75 mGy-cm. Automated exposure control was utilized for the study. A dose lowering technique was utilized adhering to the principles of ALARA. COMPARISON: No relevant prior studies available. FINDINGS: No acute intracranial hemorrhage. No midline shift or mass effect. The territorial monsalve-white matter differentiation is maintained throughout. Age-related cerebral volume loss. Periventricular and subcortical white matter hypoattenuation, consistent with chronic microangiopathy. The visualized orbits appear grossly unremarkable. The calvarium is intact. The visualized paranasal sinuses and mastoid air cells are grossly clear. IMPRESSION: No acute intracranial hemorrhage, midline shift, or mass effect. Electronically signed by: Mc Mac MD 06/09/23 00:09 AM Discharge Plan Visit Data Chief Complaint: Altered Mental Status ED Provider: Ludin Padilla Discharge Problem: Weakness, Confusion, Fever, Fall, COVID-19 Patient Disposition: Admitted As Inpatient Condition: Fair Forms Stand Alone Forms: [employer] Prescriptions Prescriptions: No Action multivitamin [Multiple Vitamins] Tablet 1 tab PO DAILY Referrals Referrals: Mai Caceres MD [Primary Care Provider] - Discharge Problem: Fever Qualifiers: Fever type: unspecified Qualified Code(s): R50.9 - Fever, unspecified Fall Qualifiers: Encounter type: initial encounter Qualified Code(s): W19.XXXA - Unspecified fall, initial encounter
[2023-06-08] MEDS ORDERED: ACETAMINOPHEN 500 MG TAB PO STA (22:48)
[2023-06-08 22:56] LABS: Appearance Urine Clear (Clear); Bilirubin Urine Negative (Negative); Blood Urine Negative (Negative); Color Urine Yellow; Glucose Urine UA Negative (Negative); Ketones Urine 1+ (Negative); Leukocyte Esterase Urine Negative (Negative); Nitrite Urine Negative (Negative); Protein Urine Negative (Negative); Specific Gravity Urine 1.023 (1.000-1.030); Urobilinogen Urine Negative (Negative)
[2023-06-08 23:10] LABS: Basophils # (auto) 0.02 K/uL (0.00-0.20); Basophils % (auto) 0.2 %; Eosinophils # (auto) 0.02 K/uL (0.00-0.50); Eosinophils % (auto) 0.2 %; Hematocrit (blood only) 38.8 % (37.0-47.0); Hemoglobin 13.2 g/dl (12.0-16.0); Immature Granulocytes # (auto) 0.04 K/uL (0.01-0.20); Immature Granulocytes % (auto) 0.4 %; Lymphocytes # (auto) 0.56 K/uL (1.20-3.40); Lymphocytes % (auto) 5.7 %; Mean Corpuscular Volume 91.1 fL (80.0-100.0); Mean Platelet Volume 10.3 fL (9.4-12.4); Monocytes # (auto) 0.55 K/uL (0.11-0.59); Monocytes % (auto) 5.6 %; Neutrophils # (auto) 8.63 K/uL (1.40-6.50); Neutrophils % (auto) 87.9 %; Platelet Count 190 K/uL (130-400); RDW Coefficient of Variation 14.3 % (11.5-14.5); RDW Standard Deviation 48.5 fL (36.4-46.3); Red Blood Count 4.26 M/uL (4.20-5.40); White Blood Count 9.82 K/ul (4.8-10.8)
[2023-06-08 23:17] LABS: Albumin Globulin Ratio 1.4 (0.9-2); Albumin Level 4.3 gm/dl (3.4-5.0); BUN Creatinine Ratio 15.7 (10-20); Bilirubin,Total 0.5 mg/dl (0.2-1.0); Calcium 9.1 mg/dl (8.6-10.3); Creatinine Clr Calc Pharmacy 47.2 ml/min; Est GFR (Non-African American) 59.5 ml/min; Globulin 3.1 gm/dl (2.5-4.0); Magnesium 2.1 mg/dl (1.7-2.4); Potassium 3.6 mmol/L (3.5-5.1); Total Protein 7.4 gm/dl (6.0-8.3)
[2023-06-08 23:25] LABS: Troponin I High Sensitivity 4.6 pg/ml (0-14)
[2023-06-08 23:34] LABS: Thyroid Stimulating Hormone 0.691 uIu/ml (0.300-4.500)
[2023-06-08 23:35] LABS: Influenza A virus by PCR Negative (Neg); Influenza B virus by PCR Negative (Neg); RSV by PCR Negative (Neg)
[2023-06-08 23:39] LABS: SARS CoV2 RNA(COVID-19) Ceph POSITIVE (Negative)
--- NOTE | 2023-06-09 00:09 | CT Scan Report ---
Exam(s): CT HEAD Without Contrast EXAM: CT Head Without Intravenous Contrast CLINICAL HISTORY: Reason for exam: altered. TECHNIQUE: Axial computed tomography images of the head/brain without intravenous contrast. CTDI is 38.7 mGy and DLP is 547.75 mGy-cm. Automated exposure control was utilized for the study. A dose lowering technique was utilized adhering to the principles of ALARA. COMPARISON: No relevant prior studies available. FINDINGS: No acute intracranial hemorrhage. No midline shift or mass effect. The territorial monsalve-white matter differentiation is maintained throughout. Age-related cerebral volume loss. Periventricular and subcortical white matter hypoattenuation, consistent with chronic microangiopathy. The visualized orbits appear grossly unremarkable. The calvarium is intact. The visualized paranasal sinuses and mastoid air cells are grossly clear. IMPRESSION: No acute intracranial hemorrhage, midline shift, or mass effect. Electronically signed by: Mc Mac MD 06/09/23 00:09 AM
--- NOTE | 2023-06-09 01:06 | History & Physical Report ---
Date of Service June 09, 2023 Assessment & Plan (1) Altered mental status: Plan: -Altered mental status in setting of COVID infection -Currently hemodynamically stable and afebrile w/o any concerning lab abnormalities, now at baseline mental status -BCx ordered in ER, pending -Ammonia added to AM labs though there is low concern for hepatic encephalopathy -Continue to monitor (2) Generalized weakness: Plan: -Generalized weakness likely related to COVID infection and also age-related deconditioning -Family does not feel safe to take her home at present per ER note -PT/OT consulted (3) COVID-19: Plan: -COVID positive on admission -No reported respiratory symptoms and stable respiratory status on RA -Incidental COVID infection which will not require any inpatient intervention -Supportive care as needed (4) Hypertension: Plan: -BP stable at present -Was previously on HCTZ but this has seemingly been discontinued -Monitor (5) Anemia: Plan: -Hgb stable at present -Monitor CBC (6) Cognitive impairment: Plan: -Noted Mini-Cog score of 4 in 11/2022 -Suspected mild cognitive impairment/dementia though has not had formal diagnosis or testing per chart review Plan FENGI: Regular Code status: Full DVT prophylaxis: Lovenox Isolation: COVID Unit: Medical/surgical Disposition planning: Pending PT/OT consults History of Present Illness Chief Complaint: AMS Primary Care Provider: Mai Caceres MD Pt is 83 yo F with PMH HTN, anemia, mild cognitive impairment presenting with confusion and weakness. Pt apparently was confused at home earlier on 06/08 and had difficulty standing and maintaining her balance. She fell backwards into chair while attempting to get up due to generalized weakness. Pt's family brought her to ER for evaluation. Pt arrived to ER hemodynamically stable. Initial evaluation entirely unremarkable including CBC, CMP, troponin, lactate, TSH, UA, EKG. CXR does not show any acute process. Head CT negative. COVID positive. ER interventions include Tylenol 1000 mg PO, 500cc NSS bolus. At present, pt reports feeling well w/o acute complaints. She still feels weak but denies any dyspnea, chest pain, etc. Allergies Allergy/AdvReac Type Severity Reaction Status Date / Time fexofenadine [From Naomi] Allergy Seizure Verified 06/08/23 22:20 Home Medications Medication Instructions Recorded Confirmed Type multivitamin (Multiple Vitamins 1 tab PO DAILY 06/08/23 06/08/23 History tablet) Past Med/Surg History Medical History (Updated 06/09/23 @ 01:22 by Trang Perez MD) Change in vision History of actinic keratosis Prolapse of vaginal vault after hysterectomy Rectocele Rhinitis Seborrheic keratosis Surgical History History of parathyroid surgery History of oophorectomy History of hysterectomy Family History Mother Breast cancer Sister Breast cancer Other Family history of breast cancer Denies family history of Ovarian cancer Prostate cancer Myocardial infarction Colorectal cancer Social History Smoking Status: Former smoker Tobacco Type: Cigarettes Second Hand Exposure: No; Do You Dip or Chew Tobacco: No; Tobacco Cessation Education Requested by Patient: No Hx Alcohol Use: No Hx Substance Use: No Preferred Language: Gibraltarian Communication Ability: Effective Visual Impairment: Limited Hearing Ability: Hard of Hearing Stewardess Supervisor Required: No Beliefs That Will Affect Care: None marital status: Current Living Situation: Spouse current occupational status: retired How many Children do You have: 1 Other Information That Helps Us Care for You: No Feels Safe at Home: Yes Safety Concerns: Feels Safe At This Time Childhood Exposure to Second-Hand Smoke: No Diet: regular caffeine: Yes (coffee) during the past year weight has: remained stable Dental Care, Regularly: No Physical Activity Frequency: Does not Exercise Seatbelt Use: always Sunscreen Use: Yes Assistive Devices: Cane and Glasses Review of Systems Review of Systems: Per HPI/Subjective Physical Exam Physical Exam: General: well-appearing, no acute distress HEENT: PERRL, EOMI, conjunctivae clear without injection, anicteric sclerae, moist mucous membranes, clear oropharynx without exudate or erythema Neck: supple, trachea midline, no thyromegaly, no JVD, no cervical lymphadenopathy CV: RRR, normal S1 and S2, no murmurs Resp: CTAB, no increased work of breathing, no crackles or wheezes Abd: Soft, nontender, nondistended, no guarding or rebound, no hepatosplenomegaly MSK: Normal bulk of all four extremities Neuro: AOx3, no focal motor or sensory deficits Skin: no rashes or lesions, warm and dry Ext: no LE peripheral edema or erythema, capillary refill <2s in all four extremities, 2+ LE peripheral pulses b/l Results & Data Results & Data Vital Signs (Past 12 Hours) Vital Signs Temp Pulse Pulse Resp BP BP Pulse Ox 06/09/23 00:24 36.5 C 06/09/23 00:00 69 18 94 06/08/23 23:30 70 18 95 06/08/23 23:00 73 20 152/81 H 94 06/08/23 23:00 73 19 152/81 H 93 06/08/23 22:59 74 20 94 06/08/23 22:41 75 06/08/23 22:38 66 18 95 06/08/23 22:38 95 06/08/23 22:37 73 30 H 95 06/08/23 22:26 38.1 C H 68 18 113/71 95 O2 Del Method O2 Flow Rate 06/09/23 00:24 06/09/23 00:00 06/08/23 23:30 06/08/23 23:00 06/08/23 23:00 Room Air 06/08/23 22:59 06/08/23 22:41 06/08/23 22:38 Room Air 06/08/23 22:38 Room Air 0 06/08/23 22:37 06/08/23 22:26 Room Air Code Status & VTE Plan VTE Prophylaxis Plan VTE Prophylaxis will be ordered: Yes Supervising Physician Co-Signing Physician Notes Attending addendum: I have physically seen this patient, have supervised the medical residents activities, and agree with the H&P unless as otherwise noted. Assessment and Plan: Altered mental status- COVID-19 infection positive, without hypoxia, GI, or other symptomatology Likely physiologic stress induced by the viral infection Supportive therapy Admit to monitored bed Generalized weakness- Likely secondary to COVID-19 infection, aggravating underlying age-related deconditioning Consult PT/OT COVID-19 infection- Supportive care only No indication for steroids or antiviral treatment Remaining orders and notations as noted Resident Activity Tracking Resident Involvement: Resident Care Provided Care Provided: Adult Hospital Medicine
[2023-06-09] MEDS ORDERED: ACETAMINOPHEN 325 MG TAB PO PRN (01:50)
[2023-06-09] MEDS ORDERED: LACTATED RINGER'S 1,000 ML IV SCH (01:50)
[2023-06-09 05:35] LABS: BUN Creatinine Ratio 19.3 (10-20); Calcium 8.1 mg/dl (8.6-10.3); Creatinine Clr Calc Pharmacy 50.6 ml/min; Est GFR (African American) 75.1 ml/min; Est GFR (Non-African American) 64.8 ml/min; Potassium 3.3 mmol/L (3.5-5.1)
[2023-06-09 05:40] LABS: Hematocrit (blood only) 33.5 % (37.0-47.0); Hemoglobin 11.4 g/dl (12.0-16.0); Mean Platelet Volume 10.5 fL (9.4-12.4); Platelet Count 161 K/uL (130-400); RDW Coefficient of Variation 14.4 % (11.5-14.5); RDW Standard Deviation 48.3 fL (36.4-46.3); Red Blood Count 3.68 M/uL (4.20-5.40); White Blood Count 6.22 K/ul (4.8-10.8)
--- NOTE | 2023-06-09 07:10 | Hospitalist Progress Note ---
Date of Service June 09, 2023 Assessment & Plan (1) Generalized weakness: Plan: -Generalized weakness likely related to COVID infection and also age-related deconditioning -Family does not feel safe to take her home at present per ER note -PT/OT consulted, awaiting their recommendations (2) COVID-19: Plan: -COVID positive on admission - stable respiratory status on RA -Incidental COVID infection which will not require any inpatient intervention -Supportive care as needed (3) Hypertension: Plan: -BP stable at present -Was previously on HCTZ but this has seemingly been discontinued -Monitor (4) Anemia: Plan: -Hgb stable at present -Monitor CBC (5) Cognitive impairment: Plan: -Noted Mini-Cog score of 4 in 11/2022 -Suspected mild cognitive impairment/dementia though has not had formal diagnosis or testing per chart review (6) Altered mental status: Plan: -Altered mental status in setting of COVID infection, now resolved and she is back to baseline mental status -Currently hemodynamically stable and afebrile w/o any concerning lab abnormalities, -BCx ordered in ER, pending -Continue to monitor Plan FENGI: Regular Code status: Full DVT prophylaxis: Lovenox Isolation: COVID Unit: Medical/surgical Disposition planning: Pending PT/OT consults Admission and Anticipated Discharge Date Admission Date: June 09, 2023 Supervising Physician Co-Signing Physician Notes I personally examined the patient and verified all mcginnis points of history and exam, discussed case, and agree with decision making with Dr Charles Feeling okay just weak. Vitals noted, in general she is awake and alert pleasant no distress. HEENT normocephalic atraumatic mucous membranes moist. Breathing unlabored no accessory muscle use good effort. Skin shows no rashes no pallor or icterus. Neuro without focal deficits. Weakness/deliriumprobably did have a bit of a metabolic encephalopathy related to COVID on admission, this seems to have improved rather significantly, but unfortunately she is quite weak and deconditioned. PT/OT eval and treat, anticipate probable need for rehab. DVT prophylaxis with Lovenox otherwise as above Subjective Pt is a 83 yo female who presents to the hospital on 06/09/23 for weakness, COVID+. Today, pt states she is feeling pretty good. She states she is not exactly sure why she was brought into the hospital but states that her son was very concerned since she had been falling over the last few months at home and she lives with her elderly . Both her and her use walkers. She states she has been falling due to tripping over the carpet in their home. Denies head trauma, chest pain, SOB, or passing out with any of the falls and does not recall the last time she fell but said it was "awhile ago." She states maybe the last few days she had been feeling sick but had not thought much of it, although is feeling a lot better today. Review of Systems Review of Systems: Constitutional: denies fever, chills, HEENT: some congestion, hoarse Cardio: denies chest pain, palpitations Resp: denies shortness of breath, Physical Exam Physical Exam: General:Alert and oriented, no acute distress, HEENT: Normocephalic, moist oral mucosa, Cardio: Regular rate and rhythm, Resp:Lungs clear to auscultation b/l, no wheezes or rhonchi, GI: Soft and nontender, nondistended, bowel sounds active Skin: Warm, pink, dry, Psych: Mood-affect congruence. Results & Data Results & Data Vital Signs (Past 12 Hours) Vital Signs Temp Pulse Pulse Resp BP BP Pulse Ox 06/09/23 06:56 69 06/09/23 06:00 64 24 93 06/09/23 05:30 65 21 95 06/09/23 05:00 65 18 96 06/09/23 04:30 69 16 97 06/09/23 04:00 64 16 93 06/09/23 03:30 66 17 90 06/09/23 03:00 65 17 91 06/09/23 02:30 70 18 90 06/09/23 02:00 77 20 93 06/09/23 01:30 77 20 93 06/09/23 01:00 77 27 H 94 06/09/23 00:30 74 23 92 06/09/23 00:24 36.5 C 06/09/23 00:00 69 18 94 06/08/23 23:30 70 18 95 06/08/23 23:00 73 20 152/81 H 94 06/08/23 23:00 73 19 152/81 H 93 06/08/23 22:59 74 20 94 06/08/23 22:41 75 06/08/23 22:38 66 18 95 06/08/23 22:38 95 06/08/23 22:37 73 30 H 95 06/08/23 22:26 38.1 C H 68 18 113/71 95 O2 Del Method O2 Flow Rate 06/09/23 06:56 06/09/23 06:00 06/09/23 05:30 06/09/23 05:00 06/09/23 04:30 06/09/23 04:00 06/09/23 03:30 06/09/23 03:00 06/09/23 02:30 06/09/23 02:00 06/09/23 01:30 06/09/23 01:00 06/09/23 00:30 06/09/23 00:24 06/09/23 00:00 06/08/23 23:30 06/08/23 23:00 06/08/23 23:00 Room Air 06/08/23 22:59 06/08/23 22:41 06/08/23 22:38 Room Air 06/08/23 22:38 Room Air 0 06/08/23 22:37 06/08/23 22:26 Room Air Resident Activity Tracking Resident Involvement: Resident Care Provided Care Provided: Adult Hospital Medicine
--- NOTE | 2023-06-09 07:11 | XRay Report ---
XR chest 1V portable HISTORY: 83 years-old Female weakness acute weakness COMPARISON: 05/30/2022 TECHNIQUE: AP view of the chest FINDINGS: Cardiac silhouette is enlarged. Atherosclerosis of the aorta. No pneumothorax, large pleural effusion or overt pulmonary edema. Subsegmental left basilar opacities. Degenerative changes of the shoulders and spine. IMPRESSION: 1. Mild cardiomegaly. 2. Subsegmental left basilar opacities are again noted, likely atelectatic. Pneumonia considered less likely. ACT 112: Negative or not required by law. The above report was generated using voice recognition software. It may contain grammatical, syntax o r spelling errors. Electronically signed by: Viraj Millard M.D. 06/09/2023 7:10 AM
--- NOTE | 2023-06-09 07:50 | Electrocardiogram Report ---
Test Reason : Blood Pressure : / mmHG Vent. Rate : 073 BPM Atrial Rate : 073 BPM P-R Int : 150 ms QRS Dur : 082 ms QT Int : 402 ms P-R-T Axes : 043 -25 049 degrees QTc Int : 442 ms Normal sinus rhythm Moderate voltage criteria for LVH, may be normal variant Nonspecific ST abnormality Borderline ECG When compared with ECG of 26-MAY-2022 20:33, No significant change was found Confirmed by Lj Avalos ([id number]) on 06/09/2023 7:50:34 AM Referred By: REFERRED SELF Confirmed By:Kye Avalos
[2023-06-09] MEDS: ENOXAPARIN INJ 40 MG/0.4 ML SYR SQ SCH (11:02)
[2023-06-09] MEDS ORDERED: BENZONATATE 100 MG CAPSULE PO PRN (13:55)
--- NOTE | 2023-06-09 17:02 | Billing Data ---
Date of Service June 09, 2023 Coding Level of Care Code 41312 SUB INP/OBS CARE
--- NOTE | 2023-06-09 20:33 | Billing Data ---
Date of Service June 09, 2023 Coding Level of Care Code 22492 INT INP/OBS CARE
[2023-06-09] MEDS ORDERED: COUGH DROP (SUGAR FREE) LOZ 24 LOZ/1 BOX BUCCAL ONE (22:52)
[2023-06-10 08:11] LABS: BUN Creatinine Ratio 15.1 (10-20); Calcium 8.4 mg/dl (8.6-10.3); Creatinine Clr Calc Pharmacy 45.1 ml/min; Est GFR (African American) 65.4 ml/min; Est GFR (Non-African American) 56.4 ml/min; Potassium 3.5 mmol/L (3.5-5.1)
[2023-06-10 08:13] LABS: Basophils # (auto) 0.02 K/uL (0.00-0.20); Basophils % (auto) 0.4 %; Eosinophils % (auto) 1.9 %; Hematocrit (blood only) 35.3 % (37.0-47.0); Hemoglobin 11.6 g/dl (12.0-16.0); Immature Granulocytes # (auto) 0.02 K/uL (0.01-0.20); Immature Granulocytes % (auto) 0.4 %; Lymphocytes # (auto) 0.88 K/uL (1.20-3.40); Lymphocytes % (auto) 17.1 %; Mean Corpuscular Hemoglobin 30.5 pg (25.0-34.0); Mean Corpuscular Hgb Conc 32.9 g/dL (32.0-36.0); Mean Corpuscular Volume 92.9 fL (80.0-100.0); Mean Platelet Volume 10.6 fL (9.4-12.4); Monocytes # (auto) 0.68 K/uL (0.11-0.59); Monocytes % (auto) 13.2 %; Neutrophils # (auto) 3.46 K/uL (1.40-6.50); Platelet Count 153 K/uL (130-400); RDW Coefficient of Variation 14.1 % (11.5-14.5); RDW Standard Deviation 48.7 fL (36.4-46.3); White Blood Count 5.16 K/ul (4.8-10.8)
[2023-06-10] MEDS: ENOXAPARIN INJ 40 MG/0.4 ML SYR SQ SCH (10:25)
--- NOTE | 2023-06-10 12:50 | Hospitalist Progress Note ---
Date of Service June 10, 2023 Assessment & Plan (1) Generalized weakness: Plan: -Generalized weakness likely related to COVID infection and also age-related deconditioning -Family does not feel safe to take her home at present per ER note -PT/OT consulted, awaiting their recommendations (2) COVID-19: Plan: -COVID positive on admission - stable respiratory status on RA. No intervention necessary at this time. -Supportive care as needed (3) Hypertension: Plan: -BP stable at present -Was previously on HCTZ but this has seemingly been discontinued -Monitor (4) Anemia: Plan: -Hgb stable at present -Monitor CBC (5) Cognitive impairment: Plan: -Noted Mini-Cog score of 4 in 11/2022 -Suspected mild cognitive impairment/dementia though has not had formal diagnosis or testing per chart review (6) Altered mental status: Plan: -Altered mental status in setting of COVID infection, now resolved and she is back to baseline mental status -Currently hemodynamically stable and afebrile w/o any concerning lab abnormalities, -BCx preliminary results negative (24 hours) -Continue to monitor Plan FENGI: Regular Code status: Full DVT prophylaxis: Lovenox Isolation: COVID Unit: Medical/surgical Disposition planning: Pending PT/OT consults to determine discharge location Admission and Anticipated Discharge Date Admission Date: June 09, 2023 Supervising Physician Co-Signing Physician Notes Resident Physician Supervision Note: I independently interviewed and examined the patient and verified the mcginnis history and physical, reviewed labs and image studies and agree with resident findings and care plan. Feeling ok. some nasal congestion but no shortness of breath. had covid. vitals noted. AAOx3, MM - moist; CTA, RRR. Altered mental status- COVID-19 infection positive, without hypoxia, GI, or other symptomatology Likely physiologic stress induced by the viral infection Mentation back to baseline. Generalized weakness- Likely secondary to COVID-19 infection, aggravating underlying age-related deconditioning Consulted PT/OT COVID-19 infection- Supportive care only No indication for steroids or antiviral treatment Remaining orders and notations as noted Subjective Pt is a 83 yo female who presents to the hospital on 06/09/23 for noted weakness after she tried to stand from her chair and fell back due to feeling weak. She was found to be COVID-19 positive in this admission. Today she refers feeling well. She was unclear as to why she was in the hospital. she has been able to ambulate to the bathroom using her walker and has had no residual weakness when doing so or when standing from the toilet. She denies having fevers, chills, chest pain, SOB, MALLOY, lightheadedness, syncope, or any other symptom. Review of Systems Review of Systems: As per HPI. Physical Exam Physical Exam: General: Alert. Oriented to person, time, and place. Afebrile. No acute distress. Eyes: pupils equal and reactive to light bilaterally, extraocular movements intact. Cardiac: Regular rate and rhythm, no murmurs/rubs/gallops. Respiratory: Clear to auscultation bilaterally, no wheezes/rales/rhonchi. No increased work of breathing. Symmetrical chest rise. No respiratory distress. Abdomen: Soft, nontender, nondistended. Bowel sounds present. Lower Extremities: No lower extremity edema or swelling. No deep calf pain. Zander's negative bilaterally. Results & Data Results & Data Vital Signs (Past 12 Hours) Vital Signs Temp Pulse Resp BP Pulse Ox O2 Del Method 06/10/23 06:29 36.7 C 55 L 20 144/81 H 93 Room Air Resident Activity Tracking Resident Involvement: Resident Care Provided Care Provided: Adult Hospital Medicine (3) Hypertension Hypertension type: primary hypertension Qualified Code(s): I10 - Essential (primary) hypertension (4) Anemia Anemia type: unspecified type Qualified Code(s): D64.9 - Anemia, unspecified
[2023-06-11 06:31] LABS: Basophils # (auto) 0.02 K/uL (0.00-0.20); Basophils % (auto) 0.4 %; Eosinophils # (auto) 0.13 K/uL (0.00-0.50); Eosinophils % (auto) 2.8 %; Hematocrit (blood only) 34.5 % (37.0-47.0); Immature Granulocytes # (auto) 0.02 K/uL (0.01-0.20); Immature Granulocytes % (auto) 0.4 %; Lymphocytes # (auto) 1.22 K/uL (1.20-3.40); Lymphocytes % (auto) 26.5 %; Mean Corpuscular Hemoglobin 30.8 pg (25.0-34.0); Mean Corpuscular Hgb Conc 34.8 g/dL (32.0-36.0); Mean Corpuscular Volume 88.7 fL (80.0-100.0); Mean Platelet Volume 10.2 fL (9.4-12.4); Monocytes % (auto) 10.9 %; Neutrophils # (auto) 2.71 K/uL (1.40-6.50); Platelet Count 156 K/uL (130-400); RDW Coefficient of Variation 14.1 % (11.5-14.5); RDW Standard Deviation 45.2 fL (36.4-46.3); Red Blood Count 3.89 M/uL (4.20-5.40)
[2023-06-11 07:02] LABS: BUN Creatinine Ratio 18.3 (10-20); Calcium 8.4 mg/dl (8.6-10.3); Creatinine Clr Calc Pharmacy 51.2 ml/min; Est GFR (African American) 76.2 ml/min; Est GFR (Non-African American) 65.7 ml/min; Potassium 3.4 mmol/L (3.5-5.1)
[2023-06-11] MEDS ORDERED: POTASSIUM CHLORIDE CRTAB 20 MEQ TABCR PO STA (07:41)
[2023-06-11] MEDS: ENOXAPARIN INJ 40 MG/0.4 ML SYR SQ SCH (08:32)
--- NOTE | 2023-06-11 12:13 | Hospitalist Progress Note ---
Date of Service June 11, 2023 Assessment & Plan (1) Generalized weakness: Plan: -Generalized weakness likely related to COVID infection and also age-related deconditioning -Family does not feel safe to take her home at present per ER note -PT recc short course of rehab, and OT recc homehealth Patient expressed preference for being discharged to her home since her has helped her prior to her admission. - Patient's contacted, and he states that although she was able to do things/ her ADLs by herself prior to her admission, but does think she needs some PT especially after her most recent episode of weakness that prompted him to call an ambulance and lead to her current admission. Patient informed and still wishes to go home, but states she will bring the need for PT up again with her PCP after discharge. (2) COVID-19: Plan: -COVID positive on admission - stable respiratory status on RA. No intervention necessary at this time. -Supportive care as needed (3) Hypertension: Plan: -BP stable at present -Was previously on HCTZ but this has seemingly been discontinued -Monitor (4) Anemia: Plan: -Hgb stable at present -Monitor CBC (5) Cognitive impairment: Plan: -Noted Mini-Cog score of 4 in 11/2022 -Suspected mild cognitive impairment/dementia though has not had formal diagnosis or testing per chart review (6) Altered mental status: Plan: -Altered mental status in setting of COVID infection, now resolved and she is back to baseline mental status -Currently hemodynamically stable and afebrile w/o any concerning lab abnormalities, -BCx preliminary results negative (48 hours) -Continue to monitor Plan FENGI: Regular Code status: Full DVT prophylaxis: Lovenox Isolation: COVID Unit: Medical/surgical Disposition planning: PT recc short course of PT and OT recc home health. Will contact patient;s to ensure she'll be supported if discharged home. Admission and Anticipated Discharge Date Admission Date: June 09, 2023 Supervising Physician Co-Signing Physician Notes Resident Physician Supervision Note: I independently interviewed and examined the patient and verified the mcginnis history and physical, reviewed labs and image studies and agree with resident findings and care plan. Feeling ok. some nasal congestion but no shortness of breath. had covid. vitals noted. AAOx3, MM - moist; CTA, RRR. Altered mental status- Likely physiologic stress induced by the viral infection Mentation back to baseline. Generalized weakness- Likely secondary to COVID-19 infection, aggravating underlying age-related deconditioning PT/OT recommends rehab. Patient declining - will likely send home with home PT in am. COVID-19 infection- Supportive care only No indication for oral steroids or antiviral treatment Rest as above. Subjective Pt is a 83 yo female who presents to the hospital on 06/09/23 for noted weakness after she tried to stand from her chair and fell back due to feeling weak. She was found to be COVID-19 positive in this admission. Today she was found to be sitting on the chair beside her bed and refers feeling well. She denies having fevers, chills, chest pain, SOB, MALLOY, lightheadedness, syncope, or any other symptom. Review of Systems Review of Systems: As per HPI. Physical Exam Physical Exam: General: Alert. Oriented to person, time, and place. Afebrile. No acute distress. Cardiac: Regular rate and rhythm, no murmurs/rubs/gallops. Respiratory: Clear to auscultation bilaterally, no wheezes/rales/rhonchi. No increased work of breathing. Symmetrical chest rise. No respiratory distress. Abdomen: Soft, nontender, nondistended. Bowel sounds present. Lower Extremities: No lower extremity edema or swelling. No deep calf pain. Zander's negative bilaterally. Results & Data Results & Data Vital Signs (Past 12 Hours) Vital Signs Temp Pulse Resp BP Pulse Ox O2 Del Method 06/11/23 07:56 36.4 C L 62 14 143/81 H 93 Room Air 06/11/23 07:25 Room Air Resident Activity Tracking Resident Involvement: Resident Care Provided Care Provided: Adult Hospital Medicine (3) Hypertension Hypertension type: primary hypertension Qualified Code(s): I10 - Essential (primary) hypertension (4) Anemia Anemia type: unspecified type Qualified Code(s): D64.9 - Anemia, unspecified
[2023-06-11] MEDS: FLUTICASONE PROPIONATE NA SPR 16 GM BTL SCH (13:29)
[2023-06-11] MEDS: AZELASTINE HCL 0.1% NASAL 200 SPRAYS/27,400 MCG BTL SCH (21:13)
[2023-06-12 06:34] LABS: Basophils # (auto) 0.01 K/uL (0.00-0.20); Basophils % (auto) 0.3 %; Eosinophils # (auto) 0.24 K/uL (0.00-0.50); Eosinophils % (auto) 6.2 %; Hemoglobin 11.4 g/dl (12.0-16.0); Immature Granulocytes # (auto) 0.02 K/uL (0.01-0.20); Immature Granulocytes % (auto) 0.5 %; Lymphocytes # (auto) 1.55 K/uL (1.20-3.40); Lymphocytes % (auto) 39.9 %; Mean Corpuscular Hemoglobin 30.7 pg (25.0-34.0); Mean Corpuscular Hgb Conc 33.5 g/dL (32.0-36.0); Mean Corpuscular Volume 91.6 fL (80.0-100.0); Mean Platelet Volume 10.3 fL (9.4-12.4); Monocytes # (auto) 0.38 K/uL (0.11-0.59); Monocytes % (auto) 9.8 %; Neutrophils # (auto) 1.68 K/uL (1.40-6.50); Neutrophils % (auto) 43.3 %; Platelet Count 153 K/uL (130-400); RDW Coefficient of Variation 13.8 % (11.5-14.5); RDW Standard Deviation 46.8 fL (36.4-46.3); Red Blood Count 3.71 M/uL (4.20-5.40); White Blood Count 3.88 K/ul (4.8-10.8)
[2023-06-12 06:55] LABS: BUN Creatinine Ratio 16.1 (10-20); Calcium 8.3 mg/dl (8.6-10.3); Creatinine Clr Calc Pharmacy 48.3 ml/min; Est GFR (African American) 70.9 ml/min; Est GFR (Non-African American) 61.2 ml/min; Potassium 3.7 mmol/L (3.5-5.1)
[2023-06-12] MEDS: AZELASTINE HCL 0.1% NASAL 200 SPRAYS/27,400 MCG BTL SCH (08:13)
[2023-06-12] MEDS: ENOXAPARIN INJ 40 MG/0.4 ML SYR SQ SCH (08:14)
[2023-06-12] MEDS: FLUTICASONE PROPIONATE NA SPR 16 GM BTL SCH (08:15)
--- NOTE | 2023-06-12 11:55 | Discharge Summary ---
Date of Service June 12, 2023 Admission HPI Per Admitting Provider Pt is 83 yo F with PMH HTN, anemia, mild cognitive impairment presenting with confusion and weakness. Pt apparently was confused at home earlier on 06/08 and had difficulty standing and maintaining her balance. She fell backwards into chair while attempting to get up due to generalized weakness. Pt's family brought her to ER for evaluation. Pt arrived to ER hemodynamically stable. Initial evaluation entirely unr emarkable including CBC, CMP, troponin, lactate, TSH, UA, EKG. CXR does not show any acute process. Head CT negative. COVID positive. ER interventions include Tylenol 1000 mg PO, 500cc NSS bolus. At present, pt reports feeling well w/o acute complaints. She still feels weak but denies any dyspnea, chest pain, etc. Admission Exam Per Admitting Provider General: well-appearing, no acute distress HEENT: PERRL, EOMI, conjunctivae clear without injection, anicteric sclerae, moist mucous membranes, clear oropharynx without exudate or erythema Neck: supple, trachea midline, no thyromegaly, no JVD, no cervical lymphadenopathy CV: RRR, normal S1 and S2, no murmurs Resp: CTAB, no increased work of breathing, no crackles or wheezes Abd: Soft, nontender, nondistended, no guarding or rebound, no hepatosplenomegaly MSK: Normal bulk of all four extremities Neuro: AOx3, no focal motor or sensory deficits Skin: no rashes or lesions, warm and dry Ext: no LE peripheral edema or erythema, capillary refill <2s in all four extremities, 2+ LE peripheral pulses b/l Principal Diagnosis Muscle weakness; COVID positive Discharge Exam General: Alert. Oriented to person, time, and place. Afebrile. No acute distress. Cardiac: Regular rate and rhythm, no murmurs/rubs/gallops. Respiratory: Clear to auscultation bilaterally, no wheezes/rales/rhonchi. No increased work of breathing. Symmetrical chest rise. No respiratory distress. Abdomen: Soft, nontender, nondistended. Bowel sounds present. Lower Extremities: No lower extremity edema or swelling. No deep calf pain. Zander's negative bilaterally. Discharge Data Allergies Allergy/AdvReac Type Severity Reaction Status Date / Time fexofenadine [From Naomi] Allergy Seizure Verified 06/08/23 22:20 Consultations 06/09/23 00:24 ED Decision to Admit Stat Ordered Studies 06/08/23 22:15 CT head/brain wo con Stat Hospital Course (1) Generalized weakness: CHRONIC -Generalized weakness likely related to age-related deconditioning -Family does not feel safe to take her home at present per ER note -PT recc short course of rehab Patient expressed preference for being discharged to her home since her has helped her prior to her admission. Patient to be discharged with [facility] home health. (2) COVID-19: ACUTE, STABLE -COVID positive on admission -Supportive care as needed (3) Hypertension: CHRONIC, STABLE -BP stable -Was previously on HCTZ but this has seemingly been discontinued (4) Anemia: STABLE - Hgb has remained stable; patient asymptomatic (5) Cognitive impairment: CHRONIC, STABLE -Noted Mini-Cog score of 4 in 11/2022 -Suspected mild cognitive impairment/dementia though has not had formal diagnosis or testing per chart review (6) Altered mental status: RESOLVED Plan Patient found to be clinically and hemodynamically stable, aaox3, and in no acute distress. Patient express preference to go home and not interested in going to inpatient physical therapy center. CM coordinate home PT. Patient found fit to be discharged today. Total Time Total Time Spent Total Time Spent (In Minutes): As per patient attestation. Discharge Plan Discharge Items Patient Disposition: Home - Home Health Services Reason For Visit: WEAKNESS,AMS Discharge Diagnosis: age related weakness Condition on Discharge: Fair Activity: Per Instructions section Non-emergency contact: Primary Care Provider Call non-emergency contact if: your symptoms worsen Follow-up/Referrals: Mai Caceres MD [Primary Care Provider] - 06/18/23 10:00 am (APPOINTMENT WITH [facility]) Diet: Regular Addtl Attending Provider Instructions: You were admitted to the hospital for generalized weakness. You were seen by physical therapy and they found you would benefit from a short course of physical therapy to work on strengthening. Physical therapy will be coordinated as home visits. A discharge summary will be sent to your primary care physician to ensure continuity of care. Please bring this discharge summary with you to your next office appointment so that your provider can review it at that time. Follow-up appointments: Make a follow-up appointment with your PCP within the next week. It is very important that you follow up with them shortly after discharge from the hospital. Keep all your follow-up appointments as already scheduled. If you cannot make an appointment, notify your provider. Medications: Your medication list has been reviewed and reconciled upon discharge to ensure accuracy and continuity of care. An updated list of all your medications is included with your hospital discharge paperwork. Please review this list closely, and make note of any changes. If you have any issues filling these prescriptions, please call [phone] and ask to leave a message for Dr. Rothman. Take your medications as instructed; do not skip a dose of your medicines. Make sure all of your doctors know every medicine you are taking (including wjnq-sbq-[id number] medicines, vitamins, and supplements). Call your primary care provider before taking any new medicines (including over- the-counter medicines, vitamins, and supplements), because some of these may interact with your current medications, or may make your symptoms worse. Tell your primary care provider if you cannot afford your medications. CONTACT YOUR PRIMARY CARE PROVIDER if you experience any of the following: Worsening of symptoms Fever, chills, or fatigue Difficulty following your treatment plan, or difficulty taking medications CALL 911 OR GO TO THE EMERGENCY DEPARTMENT if you experience any of the following: Sudden, severe abdominal pain or nausea/vomiting Severe chest pain, or chest pain that radiates (moves) to your jaw or arm Sudden, severe shortness of breath or difficulty breathing Thank you for allowing us to participate in your care. Pending Studies at Discharge: No Stand-Alone Forms: My [facility], Smoking Cessation Medications and DC Order Prescriptions: New azelastine 137 mcg (0.1 %) Aerosol,[place] 1 spray NA BID Qty: 30 0RF fluticasone propionate 50 mcg/actuation [place],Suspension 2 spray NA DAILY Qty: 16 0RF Continued multivitamin [Multiple Vitamins] Tablet 1 tab PO DAILY Discharge Orders: Discharge Order (Routine); Ordered 06/12/23 Ordered By: Sarah Rothman Admission Data Admit Date/Time: 06/09/23 01:05 Attending Provider: Latisha Esquivel Admit Provider: Trang Perez Primary Care Provider: Mai Caceres Other Providers: Fausto Gamble; [facility]; [place]; [facility] Other Interventions: Discharge Summary Assessment (RN) Last Done: 12/13/23 14:48 Supervising Physician Co-Signing Physician Notes Resident Physician Supervision Note: I independently interviewed and examined the patient and verified the mcginnis history and physical, reviewed labs and image studies and agree with resident findings and care plan. No new concerns. nasal congestion has improved. vitals noted. AAOx3, MM - moist; CTA, RRR. Metabolic encephalopathy - treated and resolved. Likely physiologic stress induced by the viral infection Mentation back to baseline. Consider assessing for baseline cognitive function as outpatient. Generalized weakness- Likely secondary to COVID-19 infection, aggravating underlying age-related deconditioning PT/OT recommends rehab. Patient declined - sent home with home PT in am. COVID-19 infection- Supportive care only No indication for oral steroids or antiviral treatment Rest as above. Resident Activity Tracking Resident Involvement: Resident Care Provided Care Provided: Adult Hospital Medicine
== END 2023-06-12 16:50 | disposition home health service (06) | DRG 177 ==
LOC: ED 22:04 → SUATTDRO 06-09 01:05 → EDINP 06-09 01:05 → 3E 06-09 01:50

== ENCOUNTER 2023-06-14 02:56 | Inpatient (IN) ==
[2023-06-14] MEDS ORDERED: ACETAMINOPHEN 500 MG TAB PO STA (03:04)
--- NOTE | 2023-06-14 03:07 | Emergency Department Note ---
ED Visit Note CHIEF COMPLAINT: Ankle pain HISTORY OF PRESENT ILLNESS: This 83-year-old patient presents to the emergency department after sustaining an injury to the right ankle and foot with a twisting, inversion motion tripping in the bathroom. The patient complains of pain along the outside of the ankle. The patient complains of pain of the foot. The patient rates the pain as throbbing and 5/10. The patient is not able to bear weight on the foot. Constant pain, worse with movement, weight bearing, and the dependent position. No knee pain, the patient is able to move their toes. No numbness or weakness of the foot, no laceration. The patient has not had a previous fracture to this ankle/foot. The patient has taken nothing for the pain. The patient denies any other injury. REVIEW OF SYSTEMS: A 6 system review of systems was completed with positives and pertinent negatives listed in the HPI. ALLERGIES: Reviewed MEDICATIONS: Reviewed PMH: Reviewed SOCIAL HISTORY: Reviewed PHYSICAL EXAM: Vital Signs: Reviewed Nurse's notes, vital signs stable. GENERAL: Pleasant patient, no acute distress, but appears in pain, well- developed, well-nourished. MENTAL STATUS: Alert, oriented to person place and time, and cooperative. MUSCULOSKELETAL: The right ankle is swollen and tender over the lateral malleolus, but the skin is intact and there is no ligamentous instability. There is no fifth metatarsal tenderness. There is tenderness over the rest of the foot. There is no calf or tibia/fibular tenderness. There is no visual deformity. The foot and toes are warm and well-perfused. Dorsalis pedis pulse 2+. Sensation to pain and light touch is intact. Capillary refill less than 2 seconds. EMERGENCY DEPARTMENT COURSE: I examined the patient. Patient was given Tylenol. X-rays of the right foot and ankle were reviewed by myself and shows lateral malleolus fracture per my independent interpretation. Splinting Indication: Ankle fracture Location: Right ankle Type of fx: Closed nondisplaced Verbal consent obtained. Risks and benefits were explained with the usual customary discussion. The injured extremity was identified. The patient was prepped and measured for the placement of a stirrup ortho-glass splint. Splint applied in the standard fashion over a layer of webril and secured using an elastic bandage. Set into a position of function. Normal neurovascular status after placement verified by me. The patient tolerated the procedure well and the care of the splint was discussed with the patient/family. No complications. Medicine was consulted and the case was discussed. Patient will be admitted to the medical service for further evaluation and treatment. Exam and history seem consistent with an ankle fracture in an elderly patient who is weak with COVID. Patient was too unsteady to go home. Medicine was consulted and case is discussed. She will be admitted for Ortho eval and placement into rehab if warranted. Differential diagnosis includes sprain, strain, fracture, dislocation and other etiologies were considered. DIAGNOSIS: #1 right ankle fracture, #2 weakness The chart was completed utilizing [employer] voice recognition software. Grammatical errors, random word insertions, pronoun errors, and incomplete sentences are an occassional consequence of this system due to software limitations, ambient noise, and hardware issues. Any formal questions or concerns about the content, text, or information contained within the body of this dictation should be directly addressed to the physician clinic office assistant for clarification. Attending Attestation: Farzana Castro MD independently saw and evaluated this patient and agree with history and physical is otherwise documented by the physician clinic office assistant. See their note for full details. Patient with some tenderness to the ankle after a fall and evidence of a distal fibular fracture. Given her generalized weakness and recent COVID and normal use of a walker and unsure that she will be able to ambulate and care for self at home with a splint on the leg. Right lower leg was splinted and given her significant manage ambulatory dysfunction that be present with this we will bring into the hospital at this time. Hospitalist was contacted. .
--- NOTE | 2023-06-14 04:01 | History & Physical Report ---
Date of Service June 14, 2023 Assessment & Plan (1) Ankle fracture, right: Plan: -Acute R lateral malleolar fracture due to generalized weakness leading to twisting injury in attempt to prevent mechanical fall -Currently neurovascularly intact -S/p splinting in ER -Orthopedics consult placed for AM- expect unlikely to require surgical intervention -Pain control with scheduled Tylenol -PT/OT consulted (2) Generalized weakness: Plan: -Generalized weakness likely related to recent COVID infection and also age- related deconditioning -Given ongoing weakness and readmission for ankle fracture, anticipate she will need rehab placement -PT/OT consulted (3) COVID-19: Plan: -COVID positive during previous admission -No reported respiratory symptoms and stable respiratory status on RA -Incidental COVID infection which will not require any inpatient intervention -However, as pt's symptom onset was 6 days prior and positive test 5 days prior, will repeat testing -Supportive care as needed (4) Hypertension: Plan: -BP elevated on admission likely due to pain -Was previously on HCTZ but this has seemingly been discontinued -Monitor (5) Anemia: Plan: -Hgb stable at present -Monitor CBC (6) Cognitive impairment: Plan: -Noted Mini-Cog score of 4 in 11/2022 -Suspected mild cognitive impairment/dementia though has not had formal diagnosis or testing per chart review Plan FENGI: Regular Code status: Full DVT prophylaxis: SCDs Isolation: Pending COVID swab Unit: Medical/surgical Disposition planning: Pending PT/OT consults History of Present Illness Chief Complaint: Fall Primary Care Provider: Mai Caceres MD Pt is 83 yo F with PMH HTN, anemia, mild cognitive impairment presenting with confusion and weakness. Pt recently hospitalized 06/09-06/12 due to AMS, generalized weakness in setting of COVID infection. Discharged home in stable condition. In late evening of 06/13, pt states she was in her bathroom and felt weak before almost falling and twisting her right ankle. She felt immediate pain and swelling afterward over the lateral malleolus of R ankle and was unable to bear weight on it. She presented to ER for further evaluation due to constant throbbing moderate- severity pain. Pt arrived to ER hemodynamically stable, BP elevated to 18. Initial evaluation with unremarkable labs. XR of R foot/ankle demonstrating lateral malleolar fracture. ER interventions include Tylenol 1000 mg PO and splinting. At present, pt reports feeling well aside from mild pain at ankle though she did feel relief from Tylenol. Allergies Allergy/AdvReac Type Severity Reaction Status Date / Time fexofenadine [From Naomi] Allergy Seizure Verified 06/08/23 22:20 Home Medications Medication Instructions Recorded Confirmed Type multivitamin (Multiple Vitamins 1 tab PO DAILY 06/08/23 06/08/23 History tablet) azelastine 137 mcg (0.1 %) nasal 1 spray NA BID #30 mL 06/12/23 Rx spray aerosol fluticasone propionate 50 2 spray NA DAILY #16 grams 06/12/23 Rx mcg/actuation nasal spray,suspension Past Med/Surg History Medical History (Updated 06/14/23 @ 03:28 by Shanna Hemphill PA-C) Change in vision History of actinic keratosis Prolapse of vaginal vault after hysterectomy Rectocele Rhinitis Seborrheic keratosis Surgical History History of parathyroid surgery History of oophorectomy History of hysterectomy Family History Mother Breast cancer Sister Breast cancer Other Family history of breast cancer Denies family history of Ovarian cancer Prostate cancer Myocardial infarction Colorectal cancer Social History Smoking Status: Never smoker Tobacco Type: Cigarettes Second Hand Exposure: No; Do You Dip or Chew Tobacco: No; Hx Alcohol Use: No Hx Substance Use: No Preferred Language: Persian Communication Ability: Effective Visual Impairment: Limited Hearing Ability: Hard of Hearing 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 Beliefs That Will Affect Care: None marital status: Current Living Situation: Spouse current occupational status: retired How many Children do You have: 1 Feels Safe at Home: Yes Childhood Exposure to Second-Hand Smoke: No Diet: regular caffeine: Yes (coffee) during the past year weight has: remained stable Dental Care, Regularly: No Physical Activity Frequency: Does not Exercise Seatbelt Use: always Sunscreen Use: Yes Assistive Devices: Walker Review of Systems Review of Systems: Per HPI/Subjective Physical Exam Physical Exam: General: well-appearing, no acute distress HEENT: conjunctivae clear without injection, anicteric sclerae, moist mucous membranes Neck: supple, trachea midline no JVD CV: RRR, normal S1 and S2, no murmurs Resp: CTAB, no increased work of breathing, no crackles or wheezes MSK: Normal bulk of all four extremities. Noted tenderness to palpation with mild soft tissue swelling over R lateral malleolus, no proximal/distal tendern ess Neuro: AOx3, no focal motor or sensory deficits. Intact LE dorsiflexion/plantarflexion b/l, intact sensorium Skin: no rashes or lesions, warm and dry. No ecchymoses of ankles noted Ext: no LE peripheral edema or erythema, capillary refill <2s in b/ lower extremities, 2+ LE peripheral pulses b/l Results & Data Results & Data Vital Signs (Past 12 Hours) Vital Signs Temp Pulse Resp BP Pulse Ox O2 Del Method 06/14/23 03:05 36.9 C 68 20 180/87 H 97 Room Air Code Status & VTE Plan VTE Prophylaxis Plan VTE Prophylaxis will be ordered: Yes Supervising Physician Co-Signing Physician Notes I have personally seen, evaluated and examined the patient. I have also personally discussed the management of the patient with the resident physician and I agree with the exam findings documented in the history and physical examination and the documented assessment and plan unless otherwise stated below. Brief exam: HEENT: normocephalic atraumatic. Heart: regular rate and rhythm. Lungs: Clear bilaterally. Extremities: Neurovascular right lower extremity is intact she is in a splint. She moves her toes on command with good capillary refill. Neurologically: She is alert and oriented x 3. No focal deficit on exam. Assessment/plan: As described above. Await orthopedic input again doubt surgical intervention will be needed. PT and OT consultation May need protective services social worker involved if the patient is unable to return to her home environment initially. COVID testing being performed if she still testing positive we will have to continue isolation protocol Resident Activity Tracking Resident Involvement: Resident Care Provided Care Provided: Adult Hospital Medicine (1) Ankle fracture, right Encounter type: initial encounter Fracture type: closed Qualified Code(s): S82.891A - Other fracture of right lower leg, initial encounter for closed fra cture (4) Hypertension Hypertension type: primary hypertension Qualified Code(s): I10 - Essential (primary) hypertension (5) Anemia Anemia type: unspecified type Qualified Code(s): D64.9 - Anemia, unspecified
--- NOTE | 2023-06-14 04:15 | Billing Data ---
Date of Service June 14, 2023 Coding Level of Care Code 61531 INT INP/OBS CARE
--- NOTE | 2023-06-14 06:53 | XRay Report ---
XR ankle RT min 3V routine, XR foot RT min 3V routine HISTORY: 83 years-old Female fall, pain acute pain of the right foot and ankle status post fall COMPARISON: None TECHNIQUE: 3 views of the right foot with 3 views of the right ankle FINDINGS: ANKLE: There is an acute obliquely oriented fracture of the distal metaphyseal fibula extending to the level of the ankle mortise demonstrating 2 mm lateral displacement. 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 Moderate anterolateral soft tissue swelli ng with arterial calcifications. FOOT: Hallux valgus with first metatarsal bunion formation noted. Demineralized appearance of the bones wit h mild to moderate multifocal osteoarthritis. IMPRESSION: Acute minimally displaced distal fibular fracture. ACT 112: Negative or not required by law. The above report was generated using voice recognition software. It may contain grammatical, syntax o r spelling errors. Electronically signed by: Viraj Millard M.D. 06/14/2023 6:51 AM
[2023-06-14] MEDS: ACETAMINOPHEN 325 MG TAB PO SCH ×3 (10:53→20:15)
--- NOTE | 2023-06-14 11:37 | Orthopedic Consultation ---
Date of Service June 14, 2023 Assessment & Plan (1) Ankle fracture, right: Patient was seen and evaluated today with Dr. Borja with the following assessment and plan. Patient's pathology is to the right ankles discussed with the patient and its entirely with ample amount of time for the patient to ask an y questions or concerns. All questions and concerns were answered to the patient's satisfaction. At this point, the ankle may be treated nonoperatively with conservative treatment. An order for a tall walking boot was placed in which she may transition into the tall walking boot. She may be weightbearing as tolerated in the tall walking boot. She may be out of the tall walking boot whenever she is at rest. DVT prophylaxis and medical treatment per primary. She will follow-up with Dr. Borja in 2 weeks for follow-up fracture care. Please reach out by [place] text or reach out to [facility] orthopedics of the patient's situation is to change. History of Present Illness Reason for Consultation: . Right lateral malleolus fracture Requesting Physician: . Attending Physician: Devin Nunez, PhD, DO . Becky is a pleasant 83-year-old female who yesterday evening was in her bathroom felt weak when she began falling and twisted her right ankle. She had immediate onset of right ankle pain and was unable to weight-bear on the right lower extremity. She was transported to [facility] emergency department where an x-ray was completed and she was found to have a right lateral malleolus fracture. She was placed in a fiberglass splint and a consult for orthopedics was given for evaluation. Today, she states that her pain is well-controlled while immobilized. She has not been up and ambulating on it. She is currently on COVID precautions. She currently is not on any anticoagulation. She denies any concerns today. Allergies Allergy/AdvReac Type Severity Reaction Status Date / Time fexofenadine [From Naomi] Allergy Seizure Verified 06/14/23 09:32 Home Medications Medication Instructions Recorded Confirmed Type multivitamin (Multiple Vitamins 1 tab PO DAILY 06/08/23 06/14/23 History tablet) azelastine 137 mcg (0.1 %) nasal 1 spray NA BID #30 mL 06/12/23 06/14/23 Rx spray aerosol fluticasone propionate 50 2 spray NA DAILY #16 grams 06/12/23 06/14/23 Rx mcg/actuation nasal spray,suspension Past Med/Surg History Medical History (Updated 06/14/23 @ 11:34 by Viraj Coker PA-C) Change in vision History of actinic keratosis Prolapse of vaginal vault after hysterectomy Rectocele Rhinitis Seborrheic keratosis Surgical History History of parathyroid surgery History of oophorectomy History of hysterectomy Family History Mother Breast cancer Sister Breast cancer Other Family history of breast cancer Denies family history of Ovarian cancer Prostate cancer Myocardial infarction Colorectal cancer Social History Smoking Status: Former smoker Tobacco Type: Cigarettes Second Hand Exposure: No; Do You Dip or Chew Tobacco: No; Hx Alcohol Use: No Hx Substance Use: No Preferred Language: Telugu Communication Ability: Effective Visual Impairment: Limited Hearing Ability: Hard of Hearing Biomedical Scientist Required: No Beliefs That Will Affect Care: None marital status: Current Living Situation: Spouse current occupational status: retired How many Children do You have: 1 Feels Safe at Home: Yes Childhood Exposure to Second-Hand Smoke: No Diet: regular caffeine: Yes (coffee) during the past year weight has: remained stable Dental Care, Regularly: No Physical Activity Frequency: Does not Exercise Seatbelt Use: always Sunscreen Use: Yes Assistive Devices: None Review of Systems All systems reviewed & are unremarkable except as noted in HPI & below. Physical Exam . General: well-appearing, no acute distress HEENT: conjunctivae clear without injection, anicteric sclerae, moist mucous membranes Neck: supple, trachea midline no JVD CV: RRR, normal S1 and S2, no murmurs Resp: CTAB, no increased work of breathing, no crackles or wheezes Neuro: AOx3, no focal motor or sensory deficits. Intact LE dorsiflexion/plantarflexion b/l, intact sensorium Skin: no rashes or lesions, warm and dry. No ecchymoses of ankles noted Ext: no LE peripheral edema or erythema, capillary refill <2s in b/ lower extremities, 2+ LE peripheral pulses b/l Musculoskeletal On physical examination of the right ankle, she has some tenderness with mild soft tissue swelling over the right lateral malleolus. She has limited range of motion with plantarflexion and dorsiflexion secondary to discomfort. Supportive inversion and eversion of the ankle show relatively stable ligamental exam. +2 DP and PT pulses. Less than 2-second capillary refill. Normal sensation. Neurovascular intact. Results & Data Results & Data Laboratory Results . Diagnostic Findings . Ankle X-Ray 06/14/23 03:04 XR ankle RT min 3V routine, XR foot RT min 3V routine HISTORY: 83 years-old Female fall, pain acute pain of the right foot and ankle status post fall COMPARISON: None TECHNIQUE: 3 views of the right foot with 3 views of the right ankle FINDINGS: ANKLE: There is an acute obliquely oriented fracture of the distal metaphyseal fibula extending to the level of the ankle mortise demonstrating 2 mm lateral displacement. 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 Moderate anterolateral soft tissue swelling with arterial calcifications. FOOT: Hallux valgus with first metatarsal bunion formation noted. Demineralized appearance of the bones with mild to moderate multifocal osteoarthritis. IMPRESSION: Acute minimally displaced distal fibular fracture. ACT 112: Negative or not required by law. The above report was generated using voice recognition software. It may contain grammatical, syntax or spelling errors. Electronically signed by: Viraj Millard M.D. 06/14/2023 6:51 AM Foot X-Ray 06/14/23 03:04 XR ankle RT min 3V routine, XR foot RT min 3V routine HISTORY: 83 years-old Female fall, pain acute pain of the right foot and ankle status post fall COMPARISON: None TECHNIQUE: 3 views of the right foot with 3 views of the right ankle FINDINGS: ANKLE: There is an acute obliquely oriented fracture of the distal metaphyseal fibula extending to the level of the ankle mortise demonstrating 2 mm lateral displacement. 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 Moderate anterolateral soft tissue swelling with arterial calcifications. FOOT: Hallux valgus with first metatarsal bunion formation noted. Demineralized appearance of the bones with mild to moderate multifocal osteoarthritis. IMPRESSION: Acute minimally displaced distal fibular fracture. ACT 112: Negative or not required by law. The above report was generated using voice recognition software. It may contain grammatical, syntax or spelling errors. Electronically signed by: Viraj Millard M.D. 06/14/2023 6:51 AM PG Care Time/CCT Total # of Minutes Spent Total Time Spent with Patient: Total time spent is greater than 50% in coordination of care (as documented) at patient's floor/unit and/or counseling patient: Coding Level of Care Code 68823 IN/OBS CONSULT LVL 3,45M Diagnoses Closed fracture of right ankle, initial encounter S82.891A Encounter type: initial encounter Fracture type: closed Additional Codes Fx Ankle - Distal fibula/lateral malleolus: Distal fibula/lateral malleolus ([id number]) (1) Ankle fracture, right Encounter type: initial encounter Fracture type: closed Qualified Code(s): S82.891A - Other fracture of right lower leg, initial encounter for closed fracture
[2023-06-14] MEDS: HEPARIN SOD 5,000 UNIT/0.5 ML VIAL SQ SCH (20:16)
[2023-06-15] MEDS: ACETAMINOPHEN 325 MG TAB PO SCH ×4 (03:55→20:14)
[2023-06-15 06:14] LABS: Hemoglobin 11.7 g/dl (12.0-16.0); Mean Corpuscular Hemoglobin 30.8 pg (25.0-34.0); Mean Corpuscular Hgb Conc 33.4 g/dL (32.0-36.0); Mean Corpuscular Volume 92.1 fL (80.0-100.0); Mean Platelet Volume 9.9 fL (9.4-12.4); Platelet Count 188 K/uL (130-400); RDW Coefficient of Variation 13.8 % (11.5-14.5); RDW Standard Deviation 46.9 fL (36.4-46.3); White Blood Count 6.13 K/ul (4.8-10.8)
[2023-06-15 06:34] LABS: BUN Creatinine Ratio 17.1 (10-20); Calcium 8.5 mg/dl (8.6-10.3); Creatinine Clr Calc Pharmacy 54.4 ml/min; Est GFR (African American) 83.5 ml/min; Potassium 3.8 mmol/L (3.5-5.1)
[2023-06-15] MEDS: HEPARIN SOD 5,000 UNIT/0.5 ML VIAL SQ SCH ×2 (08:27→20:15)
--- NOTE | 2023-06-15 10:23 | Hospitalist Progress Note ---
Date of Service June 15, 2023 Assessment & Plan (1) Ankle fracture, right: Plan: -Acute R lateral malleolar fracture due to generalized weakness leading to twisting injury in attempt to prevent mechanical fall -Currently neurovascularly intact -Orthopedics consult: Non-operative management Tall walking boot and weightbearing as able using this boot (may remove when laying down) f/u with Dr. Borja in 2 weeks -Pain control with scheduled Tylenol -PT/OT consulted [facility] rehab after dc. Patient in agreement. Referral sent to [facility]. [facility] following. (2) Generalized weakness: Plan: -Generalized weakness likely related to recent COVID infection and also age- related deconditioning -Given ongoing weakness and readmission for ankle fracture, anticipate she will need rehab placement -PT/OT consulted As above. (3) Urinary tract infection: Plan: - Urine noted to be foul-smelling and had sediment - Patient feeling well and not endorsing dysuria - VSS and patient has remained AF - Ordered U/A and U/Cx -- will treat if appropriate (4) COVID-19: Plan: -COVID positive during previous admission -No reported respiratory symptoms and stable respiratory status on RA -Incidental COVID infection which will not require any inpatient intervention -Repeat COVID PCR testing positive -Supportive care as needed (5) Hypertension: Plan: -BP elevated on admission likely due to pain -Was previously on HCTZ but this has seemingly been discontinued -Monitor (6) Anemia: Plan: -Hgb stable at present -Monitor CBC (7) Cognitive impairment: Plan: -Noted Mini-Cog score of 4 in 11/2022 -Suspected mild cognitive impairment/dementia though has not had formal diagnosis or testing per chart review Plan FENGI: Regular Code status: Full DVT prophylaxis: Heparin 5000 SQ, SCDs Isolation: Pending COVID swab Unit: Medical/surgical Disposition planning: Pending PT/OT consults Admission and Anticipated Discharge Date Admission Date: June 14, 2023 Supervising Physician Co-Signing Physician Notes Attending Physician Supervision Note: I independently interviewed and examined the patient and verified the mcginnis history and physical, reviewed labs and image studies and agree with findings and care plan noted above. Subjective Ms. Hayes is an 83 y/o female with history of recent admission from 06/09/23- 06/12/23 due to generalized weakness that made it difficult to stand from her chair. She was advised she would need a short course of PT after discharge, but she expressed preference to go home instead with home health. She returns to the ED last night after losing her balance in the bathroom after "doing something she knows she cannot do by herself", resulting in a sprained ankle. X-ray of her right ankle at this time showed lateral malleolar fracture. Patient was evaluated at bedside today and found alone, clinically and hemodynamically stable, and in no acute distress. She refers feeling well and only endorses slight discomfort from her right ankle/foot. She denies fevers, chills, malaise, chest pain, SOB, or any other symptom. Review of Systems Review of Systems: As per HPI. Physical Exam Physical Exam: General: Alert. Oriented to person, time, and place. Afebrile. No acute distress. HEENT: normocephalic, atraumatic, EOM intact Cardiac: Regular rate and rhythm, no murmurs/rubs/gallops. Respiratory: Clear to auscultation bilaterally, no wheezes/rales/rhonchi. No increased work of breathing. Symmetrical chest rise. No respiratory distress. Abdomen: Soft, nontender, nondistended. Bowel sounds present. Lower Extremities: Swelling over the soft tissues of the lateral malleolus in the right lower extremity; no abnormalities observed in left extremity; No deep calf pain. Zander's negative bilaterally. Results & Data Results & Data Vital Signs (Past 12 Hours) Vital Signs Temp Pulse Resp BP Pulse Ox O2 Del Method 06/15/23 08:02 36.6 C 63 18 141/84 H 94 Room Air Resident Activity Tracking Resident Involvement: Resident Care Provided Care Provided: Adult Hospital Medicine (1) Ankle fracture, right Encounter type: initial encounter Fracture type: closed Qualified Code(s): S82.891A - Other fracture of right lower leg, initial encounter for closed fracture (5) Hypertension Hypertension type: primary hypertension Qualified Code(s): I10 - Essential (primary) hypertension (6) Anemia Anemia type: unspecified type Qualified Code(s): D64.9 - Anemia, unspecified
[2023-06-15 16:19] LABS: Appearance Urine Clear (Clear); Bacteria Urine Automated 4+ (Negative); Bilirubin Urine Negative (Negative); Blood Urine 3+ (Negative); Color Urine Yellow; Epithelial Cell Urine Auto 0-5 /lpf (0-5); Glucose Urine UA Negative (Negative); Ketones Urine Negative (Negative); Leukocyte Esterase Urine 2+ (Negative); Nitrite Urine Negative (Negative); Protein Urine Negative (Negative); Specific Gravity Urine 1.012 (1.000-1.030); Urobilinogen Urine Negative (Negative); WBC Urine Automated >30 /hpf (0-5)
[2023-06-15] MEDS: cefTRIAXone SODIUM 1,000 MG in DEXTROSE 5 % MINI-B 50 ML IV SCH (18:47)
[2023-06-16] MEDS: ACETAMINOPHEN 325 MG TAB PO SCH ×4 (03:07→20:44)
[2023-06-16 06:22] LABS: Basophils # (auto) 0.03 K/uL (0.00-0.20); Basophils % (auto) 0.4 %; Eosinophils # (auto) 0.27 K/uL (0.00-0.50); Eosinophils % (auto) 3.9 %; Hematocrit (blood only) 36.2 % (37.0-47.0); Hemoglobin 12.1 g/dl (12.0-16.0); Immature Granulocytes # (auto) 0.07 K/uL (0.01-0.20); Lymphocytes % (auto) 15.8 %; Mean Corpuscular Hemoglobin 30.5 pg (25.0-34.0); Mean Corpuscular Hgb Conc 33.4 g/dL (32.0-36.0); Mean Corpuscular Volume 91.2 fL (80.0-100.0); Monocytes # (auto) 0.46 K/uL (0.11-0.59); Monocytes % (auto) 6.6 %; Neutrophils # (auto) 5.04 K/uL (1.40-6.50); Neutrophils % (auto) 72.3 %; Platelet Count 211 K/uL (130-400); RDW Coefficient of Variation 13.5 % (11.5-14.5); RDW Standard Deviation 45.3 fL (36.4-46.3); Red Blood Count 3.97 M/uL (4.20-5.40); White Blood Count 6.97 K/ul (4.8-10.8)
[2023-06-16 06:43] LABS: Albumin Globulin Ratio 1.4 (0.9-2); Albumin Level 3.6 gm/dl (3.4-5.0); BUN Creatinine Ratio 17.8 (10-20); Bilirubin,Total 0.4 mg/dl (0.2-1.0); Creatinine Clr Calc Pharmacy 56.6 ml/min; Est GFR (African American) 87.7 ml/min; Est GFR (Non-African American) 75.6 ml/min; Globulin 2.5 gm/dl (2.5-4.0); Potassium 3.8 mmol/L (3.5-5.1); Total Protein 6.1 gm/dl (6.0-8.3)
[2023-06-16] MEDS: HEPARIN SOD 5,000 UNIT/0.5 ML VIAL SQ SCH ×2 (08:13→19:45)
--- NOTE | 2023-06-16 11:18 | Hospitalist Progress Note ---
Date of Service June 16, 2023 Assessment & Plan (1) Ankle fracture, right: Plan: -Acute R lateral malleolar fracture due to generalized weakness leading to twisting injury in attempt to prevent mechanical fall -Currently neurovascularly intact -Orthopedics consult: Non-operative management Tall walking boot and weightbearing as able using this boot (may remove when laying down) f/u with Dr. Borja in 2 weeks -Pain control with scheduled Tylenol -PT/OT consulted [facility] rehab after dc. Patient in agreement. Referral sent to [facility]. [facility] following. (2) Generalized weakness: Plan: -Generalized weakness likely related to recent COVID infection and also age- related deconditioning -Given ongoing weakness and readmission for ankle fracture, anticipate she will need rehab placement -PT/OT consulted As above. (3) Urinary tract infection: Plan: - Urine noted to be foul-smelling and had sediment - Was getting agitated last night. U/Cx - >100k gram neg bacilli Started Ceftriaxone (4) COVID-19: Plan: -COVID positive during previous admission -No reported respiratory symptoms and stable respiratory status on RA -Incidental COVID infection which will not require any inpatient intervention -Repeat COVID PCR testing positive -Supportive care as needed (5) Hypertension: Plan: -BP elevated on admission likely due to pain -Was previously on HCTZ but this has seemingly been discontinued -Monitor (6) Anemia: Plan: -Hgb stable at present -Monitor CBC (7) Cognitive impairment: Plan: -Noted Mini-Cog score of 4 in 11/2022 -Suspected mild cognitive impairment/dementia though has not had formal d iagnosis or testing per chart review Plan FENGI: Regular Code status: Full DVT prophylaxis: Heparin 2000 SQ, SCDs Isolation: Pending COVID swab Unit: Medical/surgical Disposition planning: Pending PT/OT consults Admission and Anticipated Discharge Date Admission Date: June 14, 2023 Supervising Physician Co-Signing Physician Notes Attending Physician Supervision Note: I independently interviewed and examined the patient and verified the mcginnis history and physical, reviewed labs and image studies and agree with findings and care plan noted above. Subjective Ms. Hayes is an 83 y/o female with history of recent admission from 06/09/23- 06/12/23 due to generalized weakness that made it difficult to stand from her chair. She was advised she would need a short course of PT after discharge, but she expressed preference to go home instead with home health. She returns to the ED last night after losing her balance in the bathroom after "doing something she knows she cannot do by herself", resulting in a sprained ankle. X-ray of her right ankle at this time showed lateral malleolar fracture. Patient was evaluated at bedside today and found alone, sitting on the bedside chair with her tall boot on, clinically and hemodynamically stable, and in no acute distress. She refers feeling well and only endorses slight discomfort from her right ankle/foot. She denies fevers, chills, malaise, chest pain, SOB, or any other symptom. Review of Systems Review of Systems: As per HPI. Physical Exam Physical Exam: General: Alert. Oriented to person, time, and place. Afebrile. No acute distress. HEENT: normocephalic, atraumatic, EOM intact Cardiac: Regular rate and rhythm, no murmurs/rubs/gallops. Respiratory: Clear to auscultation bilaterally, no wheezes/rales/rhonchi. No increased work of breathing. Symmetrical chest rise. No respiratory distress. Abdomen: Soft, nontender, nondistended. Bowel sounds present. Lower Extremities: Swelling over the soft tissues of the lateral malleolus in the right lower extremity; no abnormalities observed in left extremity; No deep calf pain. Zander's negative bilaterally. Results & Data Results & Data Vital Signs (Past 12 Hours) Vital Signs Temp Pulse Resp BP Pulse Ox O2 Del Method 06/16/23 08:30 36.7 C 80 16 136/82 94 Room Air 06/16/23 08:00 Room Air Resident Activity Tracking Resident Involvement: Resident Care Provided Care Provided: Adult Hospital Medicine (1) Ankle fracture, right Encounter type: initial encounter Fracture type: closed Qualified Code(s): S82.891A - Other fracture of right lower leg, initial encounter for closed fracture (5) Hypertension Hypertension type: primary hypertension Qualified Code(s): I10 - Essential (primary) hypertension (6) Anemia Anemia type: unspecified type Qualified Code(s): D64.9 - Anemia, unspecified
[2023-06-16] MEDS: cefTRIAXone SODIUM 1,000 MG in DEXTROSE 5 % MINI-B 50 ML IV SCH (18:02)
[2023-06-17] MEDS: ACETAMINOPHEN 325 MG TAB PO SCH ×4 (02:59→20:09)
[2023-06-17] MEDS: HEPARIN SOD 5,000 UNIT/0.5 ML VIAL SQ SCH ×2 (07:49→20:08)
[2023-06-17] MEDS ORDERED: AMOXICILLIN/CLAVULANATE 500 MG TAB PO SCH (08:00)
--- NOTE | 2023-06-17 11:55 | Hospitalist Progress Note ---
Date of Service June 17, 2023 Assessment & Plan (1) Ankle fracture, right: Plan: -Acute R lateral malleolar fracture due to generalized weakness leading to twisting injury in attempt to prevent mechanical fall -Currently neurovascularly intact -Orthopedics consult: Non-operative management Tall walking boot and weightbearing as able using this boot (may remove when laying down) f/u with Dr. Borja in 2 weeks -Pain control with scheduled Tylenol -PT/OT consulted Recc rehab after dc. Patient in agreement. Referral sent to [facility]. following. (2) Generalized weakness: Plan: -Generalized weakness likely related to recent COVID infection and also age- related deconditioning -Given ongoing weakness and readmission for ankle fracture, anticipate she will need rehab placement -PT/OT consulted As above. (3) Urinary tract infection: Plan: - Urine noted to be foul-smelling and had sediment - Patient feeling well and not endorsing dysuria - VSS and patient has remained AF - Ordered U/A and U/Cx U/A with leukocyte esterase and bacteria, no nitrites U/Cx with Proteus Was on Ceftriaxone, but since patient has remained asymptomatic and clinically stable will dc antibiotics. (4) COVID-19: Plan: -COVID positive during previous admission -No reported respiratory symptoms and stable respiratory status on RA -Incidental COVID infection which will not require any inpatient intervention -Repeat COVID PCR testing positive -Supportive care as needed (5) Hypertension: Plan: -BP elevated on admission likely due to pain -Was previously on HCTZ but this has seemingly been discontinued -Monitor (6) Anemia: Plan: -Hgb stable at present -Monitor CBC (7) Cognitive impairment: Plan: -Noted Mini-Cog score of 4 in 11/2022 -Suspected mild cognitive impairment/dementia though has not had formal diagnosis or testing per chart review Plan FENGI: Regular Code status: Full DVT prophylaxis: Heparin 2000 SQ, SCDs Isolation: Pending COVID swab Unit: Medical/surgical Disposition planning: Anticipate discharge to [facility] tomorrow (pending auth). Admission and Anticipated Discharge Date Admission Date: June 14, 2023 Supervising Physician Co-Signing Physician Notes I personally examined the patient and verified all mcginnis points of history and exam, discussed case, and agree with decision making with Dr Rothman ankle pain reasonable. waiting on rehab vitals noted nad heent nc at mmm breathing unlabored no accessory muscles good effort weakness/fall/ankle fx - boot, outpt ortho f/u. PT/OT, rehab DVT proph - heparin SQ otherwise as above Subjective Ms. Hayes is an 83 y/o female with history of recent admission from 06/09/23- 06/12/23 due to generalized weakness that made it difficult to stand from her chair. She was advised she would need a short course of PT after discharge, but she expressed preference to go home instead with home health. She returns to the ED after losing her balance in the bathroom resulting in a sprained ankle. X-ray of her right ankle at this time showed lateral malleolar fracture. Patient was evaluated at bedside today and found alone and in no acute distress. She refers feeling well and only endorses slight discomfort from her right ankle/foot. She denies fevers, chills, malaise, chest pain, SOB, dysuria, flank pain, or any other symptom. Review of Systems Review of Systems: As per HPI. Physical Exam Physical Exam: General: Alert. Oriented to person, time, and place. Afebrile. No acute distress. HEENT: normocephalic, atraumatic, EOM intact Cardiac: Regular rate and rhythm, no murmurs/rubs/gallops. Respiratory: Clear to auscultation bilaterally, no wheezes/rales/rhonchi. No increased work of breathing. Symmetrical chest rise. No respiratory distress. Abdomen: Soft, nontender, nondistended. Bowel sounds present. Lower Extremities: Swelling over the soft tissues of the lateral malleolus in the right lower extremity; no abnormalities observed in left extremity; No deep calf pain. Zander's negative bilaterally. Results & Data Results & Data Vital Signs (Past 12 Hours) Vital Signs Temp Pulse Resp BP Pulse Ox O2 Del Method 06/17/23 07:52 36.9 C 64 18 143/84 H 92 Room Air Resident Activity Tracking Resident Involvement: Resident Care Provided Care Provided: Adult Hospital Medicine (1) Ankle fracture, right Encounter type: initial encounter Fracture type: closed Qualified Code(s): S82.891A - Other fracture of right lower leg, initial encounter for closed fracture (5) Hypertension Hypertension type: primary hypertension Qualified Code(s): I10 - Essential (primary) hypertension (6) Anemia Anemia type: unspecified type Qualified Code(s): D64.9 - Anemia, unspecified
--- NOTE | 2023-06-17 17:22 | Billing Data ---
Date of Service June 17, 2023 Coding Level of Care Code 75914 SUB INP/OBS CARE
[2023-06-18] MEDS: ACETAMINOPHEN 325 MG TAB PO SCH ×2 (03:38→07:58)
[2023-06-18] MEDS: HEPARIN SOD 5,000 UNIT/0.5 ML VIAL SQ SCH (07:58)
--- NOTE | 2023-06-18 10:55 | Discharge Summary ---
Date of Service June 18, 2023 Admission HPI Per Admitting Provider Pt is 83 yo F with PMH HTN, anemia, mild cognitive impairment presenting with confusion and weakness. Pt recently hospitalized 06/09-06/12 due to AMS, generalized weakness in setting of COVID infection. Discharged home in stable condition. In late evening of 06/13, pt states she was in her bathroom and felt weak before almost falling and twisting her right ankle. She felt immediate pain and swelling afterward over the lateral malleolus of R ankle and was unable to bear weight on it. She presented to ER for further evaluation due to constant throbbing moderate- severity pain. Pt arrived to ER hemodynamically stable, BP elevated to 18. Initial evaluation with unremarkable labs. XR of R foot/ankle demonstrating lateral malleolar fracture. ER interventions include Tylenol 1000 mg PO and splinting. At present, pt reports feeling well aside from mild pain at ankle though she did feel relief from Tylenol. Admission Exam Per Admitting Provider General: well-appearing, no acute distress HEENT: conjunctivae clear without injection, anicteric sclerae, moist mucous membranes Neck: supple, trachea midline no JVD CV: RRR, normal S1 and S2, no murmurs Resp: CTAB, no increased work of breathing, no crackles or wheezes MSK: Normal bulk of all four extremities. Noted tenderness to palpation with mild soft tissue swelling over R lateral malleolus, no proximal/distal tenderness Neuro: AOx3, no focal motor or sensory deficits. Intact LE dorsiflexion/plantarflexion b/l, intact sensorium Skin: no rashes or lesions, warm and dry. No ecchymoses of ankles noted Ext: no LE peripheral edema or erythema, capillary refill <2s in b/ lower extremities, 2+ LE peripheral pulses b/l Principal Diagnosis Fall with resulting in right lateral malleolus fracture Discharge Exam General: Alert. Oriented to person, time, and place. Afebrile. No acute distress. HEENT: normocephalic, atraumatic, EOM intact Cardiac: Regular rate and rhythm, no murmurs/rubs/gallops. Respiratory: Clear to auscultation bilaterally, no wheezes/rales/rhonchi. No increased work of breathing. Symmetrical chest rise. No respiratory distress. Abdomen: Soft, nontender, nondistended. Bowel sounds present. Lower Extremities: Swelling over the soft tissues of the lateral malleolus in the right lower extremity; no abnormalities observed in left extremity; No deep calf pain. Zander's negative bilaterally. Discharge Data Allergies Allergy/AdvReac Type Severity Reaction Status Date / Time fexofenadine [From Naomi] Allergy Seizure Verified 06/14/23 09:32 Consultations 06/14/23 03:39 ED Decision to Admit Stat 06/14/23 03:59 Consult Orthopedic Surgery Routine Hospital Course (1) Ankle fracture, right: Acute, stable -Acute R lateral malleolar fracture due to generalized weakness leading to twisting injury in attempt to prevent mechanical fall -Currently neurovascularly intact -Orthopedics consult: Non-operative management Tall walking boot and weightbearing as able using this boot (may remove when laying down) f/u with Dr. Borja in 2 weeks (around 06/28/23) -Pain control with Tylenol with successful control of symptoms -PT/OT consulted [facility] after dc. Patient in agreement. Will discharge to [facility] today. (2) Generalized weakness: Chronic -Generalized weakness likely related to recent COVID infection and also age- related deconditioning -PT/OT consulted As above. (3) Urinary tract infection: Acute, stable - Urine noted to be foul-smelling and had sediment - Patient feeling well and not endorsing dysuria - VSS and patient has remained AF - Ordered U/A and U/Cx U/A with leukocyte esterase and bacteria, no nitrites U/Cx with Proteus Was on Ceftriaxone, but since patient has remained asymptomatic and clinically stable will defer antibiotics. (4) COVID-19: Acute, stable -COVID positive during previous admission (positive test on 06/08/23) -No reported respiratory symptoms and stable respiratory status on RA -Supportive care as needed (5) Hypertension: Chronic, stable - Stable BP (6) Anemia: Chronic, stable -Hgb stable at present (7) Cognitive impairment: Chronic, stable -Noted Mini-Cog score of 4 in 11/2022 -Suspected mild cognitive impairment/dementia though has not had formal diagnosis or testing per chart review -Today AAOx3 and cognition at baseline Plan Patient evaluated today at bedside and found to be aaox3, and in no acute distress. Patient states her pain in her right leg is well controlled with Tylenol. She is stable and fit to be discharged today to [facility]. Total Time Total Time Spent Total Time Spent (In Minutes): <30 Discharge Plan Discharge Items Patient Disposition: Transfer Inpatient Rehab Fac Reason For Visit: FALL, ANKLE FRACTURE Discharge Diagnosis: fall due to weakness with resulting right lateral malleolar fracture Condition on Discharge: Fair Activity: Per Instructions section Non-emergency contact: Primary Care Provider Call non-emergency contact if: your symptoms worsen Follow-up/Referrals: Mai Caceres MD [Primary Care Provider] - Diet: Regular Addtl Attending Provider Instructions: You were admitted to the hospital after a fall that resulted in a fracture of your right ankle. You were treated with Tylenol for pain control, which has helped you. A discharge summary will be sent to your primary care physician to ensure continuity of care. Please bring this discharge summary with you to your next office appointment so that your provider can review it at that time. Follow-up appointments: Make a follow-up appointment with your PCP within the next week. It is very important that you follow up with them shortly after discharge from the hospital. Keep all your follow-up appointments as already scheduled. If you cannot make an appointment, notify your provider. Medications: Your medication list has been reviewed and reconciled upon discharge to ensure accuracy and continuity of care. An updated list of all your medications is included with your hospital discharge paperwork. Please review this list closely, and make note of any changes. If you have any issues filling these prescriptions, please call [phone] and ask to leave a message for Dr. Rothman. Take your medications as instructed; do not skip a dose of your medicines. Make sure all of your doctors know every medicine you are taking (including [id number] medicines, vitamins, and supplements). Call your primary care provider before taking any new medicines (including over- the-counter medicines, vitamins, and supplements), because some of these may interact with your current medications, or may make your symptoms worse. Tell your primary care provider if you cannot afford your medications. CONTACT YOUR PRIMARY CARE PROVIDER if you experience any of the following: Worsening of symptoms Fever, chills, or fatigue Difficulty following your treatment plan, or difficulty taking medications CALL 911 OR GO TO THE EMERGENCY DEPARTMENT if you experience any of the following: Sudden, severe abdominal pain or nausea/vomiting Severe chest pain, or chest pain that radiates (moves) to your jaw or arm Sudden, severe shortness of breath or difficulty breathing Thank you for allowing us to participate in your care. Pending Studies at Discharge: No Stand-Alone Forms: My [facility] Skilled Items Patient informed of condition?: Yes DNR: No Discharge Level of Care: Acute rehab Communicable Disease: Yes (COVID-19 positive from 06/08/23) Discharge Prognosis: Stable Lines: None Urinary Catheter: No Medications and DC Order Prescriptions: New acetaminophen 325 mg Tablet 650 mg PO Q6H Qty: 60 0RF Continued multivitamin [Multiple Vitamins] Tablet 1 tab PO DAILY azelastine 137 mcg (0.1 %) Aerosol,[place] 1 spray NA BID Qty: 30 0RF fluticasone propionate 50 mcg/actuation [place],Suspension 2 spray NA DAILY Qty: 16 0RF Discharge Orders: Discharge Order (Routine); Ordered 06/18/23 Ordered By: Sarah Rothman Admission Data Admit Date/Time: 06/14/23 03:59 Attending Provider: Sage Douglas Admit Provider: Trang Perez Primary Care Provider: Mai Caceres Other Providers: Mane Hayes; Geeta Cramer; Ondina Ramos; Kel Light; Karina Kaufman; Mika Borja; Antonella Rush; Tanmay San; Marcio Menjivar; Jolanta Tolentino; Marcio Arcos; Viraj Coker; Devin Nunez; [facility]; [facility] Other Interventions: Discharge Summary Assessment (RN) Last Done: 06/18/23 12:24 Supervising Physician Co-Signing Physician Notes I personally examined the patient and verified all mcginnis points of history and exam, discussed case, and agree with decision making with Dr Rothman for rehab today vitals noted nad heent nc at mmm breathing unlabored no accessory muscles good effort weakness/fall/ankle fx (probable age related osteoporotic fracture) - boot, outpt ortho f/u. PT/OT, rehab DVT proph - heparin SQ otherwise as above Resident Activity Tracking Resident Involvement: Resident Care Provided Care Provided: Adult Hospital Medicine
--- NOTE | 2023-06-18 18:18 | Billing Data ---
Date of Service June 18, 2023 Coding Level of Care Code 78604 IN/OBS DISCH 30 MIN/LESS
== END 2023-06-18 13:19 | DRG 542 ==
LOC: ED 02:56 → SUATTDRO 03:59 → 3E 03:59